=== PATIENT | female | born 1955 | race Caucasian/White ===

== ENCOUNTER 2017-02-25 06:29 | Day surgery (SDC) | payer OTHER ==
[~2017-02-25] VITALS: Ht 155.8 cm; Wt 53.4 kg
[2017-02-25] MEDS ORDERED: SODIUM CHLOR 0.9% 1000 ML INJ 1,000 ML IV SCH ×2 (06:45→10:49)
[2017-02-25 06:56] VITALS: BP 162/87; PULSE 49; RESP 18; TEMP 97.9; O2SAT 100
[2017-02-25] MEDS ORDERED: ASPI1TAB69 PO (06:57)
[2017-02-25] MEDS ORDERED: PLAV75TA29 PO (06:57)
[2017-02-25] MEDS ORDERED: METO25TA3 PO (06:57)
[2017-02-25] MEDS ORDERED: ACET500T3 PO (06:57)
[2017-02-25] MEDS ORDERED: CALCTAB19 PO (06:57)
[2017-02-25] MEDS ORDERED: VITA100018 PO (06:57)
[2017-02-25] MEDS ORDERED: PRAV20TA2 PO (06:57)
[2017-02-25] MEDS ORDERED: HEPARIN-NS/PF INJ 500 ML ONE ×3 (08:29→10:26)
[2017-02-25] MEDS ORDERED: MIDAZOLAM HCL 5 MG/5 ML VIAL ONE (08:30)
[2017-02-25] MEDS ORDERED: HEPARIN SODIUM - IV 10,000 UNITS/10 ML VIAL ONE (09:35)
[2017-02-25] MEDS ORDERED: SODIUM CHLOR 0.9% 250 ML INJ 250 ML IV PRN (11:00)
[2017-02-25] MEDS ORDERED: oxyCODONE/ACETAMINOPHEN 5 MG/325 MG TAB PO PRN (11:00)
[2017-02-25] MEDS ORDERED: oxyCODONE/ACETAMINOPHEN 10 MG/325 MG TAB PO PRN (11:00)
[2017-02-25] MEDS ORDERED: MORPHINE SULFATE 4 MG/ML INJ IV PUSH PRN (11:00)
[2017-02-25] MEDS ORDERED: METOCLOPRAMIDE HCL 10 MG/2 ML VIAL IV PRN (11:00)
[2017-02-25] MEDS ORDERED: ONDANSETRON HCL 4 MG/2 ML VIAL IV PRN (11:00)
[2017-02-25] MEDS ORDERED: LIDOCAINE HCL 1% 50 ML VIAL INFIL PRN (11:00)
[2017-02-25] MEDS ORDERED: TEMAZEPAM 15 MG CAP PO PRN (11:00)
[2017-02-25] MEDS ORDERED: ACETAMINOPHEN 325 MG TAB PO PRN (11:00)
[2017-02-25] MEDS ORDERED: ATROPINE SULFATE 1 MG/ML VIAL IV PRN (11:00)
[2017-02-25] MEDS ORDERED: LIDOCAINE 2% JELLY 30 ML TUBE TOP PRN (11:00)
[2017-02-25] MEDS ORDERED: LORazepam 2 MG/ML VIAL IV PRN (11:00)
[2017-02-25] MEDS ORDERED: MISC INFORMATION XX ONE (11:30)
--- NOTE | 2017-02-25 11:36 | MA ---
cc: AJAY GONSALEZ DATE 02/25/2017 PROCEDURE PERFORMED 1. Fluoroscopy with interpretation 2. Descending aortography 3. Bilateral lower extremity peripheral angiography first, second, third order visualization interpretation 4. Percutaneous transluminal angioplasty of the left superficial femoral artery. 5. Percutaneous transluminal angioplasty of the right peroneal and anterior tibial arteries. METHOD The risks, benefits and alternatives discussed with the patient. The patient understood and consented to the procedure. PROCEDURE The patient brought into the catheterization lab, placed on the catheterization table. The right groin and right wrist were prepped and draped in a sterile fashion. The right wrist was anesthetized with 2% lidocaine. The right radial artery was cannulated. A 6-Maltese 11 cm sheath was placed without difficulty. DESCENDING AORTOGRAPHY Descending aortography was performed anterior-posterior view using 24 cc contrast injection with good opacification. Descending aortography revealed mild infrarenal descending aortic atherosclerosis, bilateral renal arteries are patent. Bilateral common iliac arteries are occluded. There is an aortobifemoral bypass which is widely patent. PERIPHERAL ANGIOGRAPHY 1. Right lower extremity, the right common internal and external iliac arteries appear to be occluded. Right common femoral is patent. Right profunda is patent. 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 The right superficial femoral artery and popliteal arteries are occluded. There is a right femoral distal popliteal graft which is patent. The distal graft anastomosis has 75% stenosis and then at the level of the bifurcation of the peroneal and tibial artery, there is a 90% discrete stenosis. The posterior tibial appears to be occluded and not well visualized. 2. Left internal and external common iliac arteries are occluded. The left common femoral artery is patent. The profunda artery is patent. The superficial femoral artery proximal has an 80% stenosis. The common femoral, maybe slightly aneurysmal, but I also think that this may be the mendez of the aortobifemoral bypass graft. Left superficial femoral artery otherwise has minor luminal irregularities, smaller caliber size. The popliteal has minor luminal irregularities. There is three-vessel runoff posterior tibial, peroneal and anterior tibial vessels are patent with minor luminal irregularities. PERCUTANEOUS INTERVENTION A 4-Maltese multipurpose catheter was advanced down to the left common femoral artery through the radial approach over a J-wire. A 0.[address] inches [address] wire was then navigated carefully down through the superficial coronary stenosis. A 5.0 x 40 mm Medtronic balloon was then deployed in the proximal segment of the superficial femoral artery. We did try to exchange for an 0.035 x 260 cm stiff angle Glidewire and then passed a drug coated balloon, but we were unable to navigate through the aortofemoral bypass graft due to tortuosity. The wire was pulled. Repeat angiography showed no significant residual stenosis, JANNETH-III flow. Attention was then directed towards the right lower extremity. The right common femoral artery was accessed with a micropuncture sheath under fluoroscopic guidance in an antegrade direction. A 5-Maltese 55 cm sheath was then advanced into the proximal segment of the femoral-popliteal graft. A 300 cm Roberts-ST wire was then navigated down the distal anterior tibial vessel. A second 300 cm 0.014 Roberts-ST wire was then navigated down the peroneal vessel. The 4.0 x 40 mm Medtronic balloon was then deployed in the proximal anterior tibial vessel extending into the graft anastomosis at the level of the distal popliteal artery. The balloon was then removed, passed down into the proximal peroneal artery and deployed. Repeat angiography showed only minor luminal irregularities. Peroneal wire was pulled. A 4.0 x 40 mm drug coated balloon was then passed down to the proximal anterior tibial vessel extending into the distal popliteal artery graft anastomosis and deployed. Repeat angiography showed no residual stenosis, JANNETH-III flow. The catheter was then removed exchanged for short 5-Maltese sheath. Heparin was administered throughout the entire procedure to maintain appropriate anticoagulation. CONCLUSIONS 1. Mild infrarenal descending aortic atherosclerosis. 2. Occluded bilateral common external iliac arteries. 3. Occluded right superficial femoral artery. 4. Patent aortobifemoral bypass graft. 5. Patent right femoral popliteal bypass graft. 6. Severe distal graft anastomosis stenosis of the femoral popliteal graft. 7. Severe right proximal anterior tibial and peroneal artery stenosis. 8. Severe left proximal superficial femoral restenosis. 9. Successful percutaneous transluminal angioplasty of the distal right femoral popliteal graft anastomosis and proximal anterior tibial and peroneal arteries. 10. Successful percutaneous transluminal angioplasty of the left proximal superficial femoral artery. PLAN Hopefully this will translate well to symptomatic improvement. We were able to successfully revascularize both extremities as well as can be expected. Continue aspirin and Plavix. I discussed the case also with Dr. 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 MD ADILENE Trejo/AYANNA /10:57 AM /11:19 AM ARNOL
[2017-02-25] MEDS ORDERED: BACITRACIN OINT 0.9 GM PKT TOP ONE (12:00)
== END 2017-02-25 19:01 | disposition home or self-care (01) ==
LOC: HDOC 06:29 → HDIC 06:30 → HDOC 19:01
PROVIDERS: ATTEND Internal Medicine
DX: I70.213 Atherosclerosis of native arteries of extremities with intermittent claudication, bilateral legs (principal); I70.0 Atherosclerosis of aorta; I77.1 Stricture of artery; T82.858A Stenosis of other vascular prosthetic devices, implants and grafts, initial encounter; I25.10 Atherosclerotic heart disease of native coronary artery without angina pectoris; I10 Essential (primary) hypertension; Z79.01 Long term (current) use of anticoagulants; Z79.82 Long term (current) use of aspirin
CPT/HCPCS: 37224; 37228; 75625; 75716; 85002; 85347; 86850; 86900; 86901; C1725; C1751; C1769; C1893; C2623; J1644; J2250; J3010; J7030

== ENCOUNTER → 2017-05-23 | Outpatient (CLI) | payer OTHER ==
[~2017-05-23] MED LIST: ACET500T3 PO; ASPI1TAB69 PO; CALCTAB19 PO; METO25TA3 PO; PLAV75TA29 PO; PRAV20TA2 PO; VITA100018 PO
== END ==
LOC: CLAB 13:27
PROVIDERS: ATTEND Specialist
DX: B18.2 Chronic viral hepatitis C (principal); I10 Essential (primary) hypertension; I70.219 Atherosclerosis of native arteries of extremities with intermittent claudication, unspecified extremity; I25.10 Atherosclerotic heart disease of native coronary artery without angina pectoris; F17.200 Nicotine dependence, unspecified, uncomplicated
CPT/HCPCS: 36415; 82140

== ENCOUNTER → 2017-10-21 | Outpatient (CLI) | payer OTHER | LOC: CLAB 10:28 | PROVIDERS: ATTEND Specialist | DX: B18.2 Chronic viral hepatitis C (principal) | CPT/HCPCS: 36415; 82140 ==

== ENCOUNTER → 2018-02-03 | Outpatient (CLI) | payer OTHER | LOC: CLAB 09:42 | PROVIDERS: ATTEND Specialist | DX: B18.2 Chronic viral hepatitis C (principal) | CPT/HCPCS: 36415; 82140 ==

== ENCOUNTER → 2018-03-27 | Outpatient (CLI) | payer OTHER | LOC: CLAB 09:44 | PROVIDERS: ATTEND Specialist | DX: B18.2 Chronic viral hepatitis C (principal); E78.2 Mixed hyperlipidemia; E55.9 Vitamin D deficiency, unspecified; R79.89 Other specified abnormal findings of blood chemistry; Z79.899 Other long term (current) drug therapy | CPT/HCPCS: 36415; 82140 ==

== ENCOUNTER 2018-10-05 09:48 | Inpatient (IN) ==
[2018-10-05] MEDS ORDERED: Heparin Drip 25,000 UNIT/250 ML BAG IV.CONT PRN (13:49)
[2018-10-05] MEDS ORDERED: Heparin 10,000 UNITS/10 ML Vial (for IV use) IV.PUSH STA (13:49)
[2018-10-05 14:28] LABS: Baso # (Auto) 0.1 th/mm3 (0.0-0.2); Baso % (Auto) 0.8 % (0.0-2.0); Eos # (Auto) 0.1 th/mm3 (0.0-0.4); Eos % (Auto) 1.2 % (0.0-4.0); Hematocrit 32.7 % (35.0-46.0); Lymph # (Auto) 1.9 th/mm3 (1.0-4.8); Lymph % (Auto) 28.9 % (9.0-44.0); Mean Corpuscular HGB Conc 33.7 % (32.0-36.0); Mean Corpuscular Hemoglobin 31.5 pg (27.0-34.0); Mean Corpuscular Volume 93.4 fL (80.0-100.0); Mean Platelet Volume 8.5 fL (7.0-11.0); Mono # (Auto) 0.7 th/mm3 (0.0-0.9); Neut # (Auto) 3.9 th/mm3 (1.8-7.7); Neut % (Auto) 59.1 % (16.0-70.0); Platelet Count 158 th/mm3 (150-450); Red Cell Distribution Width 13.6 % (11.6-17.2); White Blood Count 6.7 th/mm3 (4.0-11.0)
[2018-10-05 14:37] LABS: Activated Partial Thrombo Time 25.9 sec (23.4-31.7); Prothrombin Time 10.5 sec (9.8-11.6)
--- NOTE | 2018-10-05 14:45 | ED ---
HPI General Chief complaint: Extremity Problem,Nontraumatic Stated complaint: Right Leg Complaint Time Seen by Provider: 10/05/18 13:18 Source: patient Mode of arrival: ambulatory Limitations: no limitations History of Present Illness HPI Narrative: 63-year-old female complains of numbness in the right leg from the knee through the toes. She has had a history of paresthesias on the right side in the past however over the past 3 days it is become totally numb. She underwent coronary catheterization with stent placement by Dr. Santos on Friday. She reports Friday morning she experienced a numbness. She has a history of peripheral vascular disease. She takes Plavix every day and took it today. She denies pain in the right leg. She has a history of vascular surgery bypass on the right lower extremity. Timing constant. No modifying factor. Related Data Home Medications Medication Instructions Recorded Confirmed aspirin 81 mg PO DAILY 10/02/18 10/05/18 calcium carbonate [Calcium 600] 600 mg PO BID 10/02/18 10/05/18 calcium polycarbophil [Fiber-Tabs] See Label Instructions .ROUTE 10/02/18 .COMPLEX cilostazol 100 mg PO BID 10/02/18 10/05/18 ergocalciferol (vitamin D2) 50,000 unit PO QWEEK 10/02/18 10/05/18 icosapent ethyl [Vascepa] 1 g PO BID 10/02/18 10/05/18 mirtazapine 7.5 mg PO DAILY 10/02/18 10/05/18 nitroglycerin 0.3 mg SUBLINGUAL Q5-15M PRN 10/02/18 10/05/18 rosuvastatin 10 mg PO 3XW 10/02/18 10/05/18 Previous Rx's Medication Instructions Recorded clopidogrel 75 mg PO DAILY #30 tab 10/03/18 isosorbide mononitrate 60 mg PO DAILY #30 tab 10/03/18 Allergies Allergy/AdvReac Type Severity Reaction Status Date / Time No Known Allergies Allergy Verified 10/05/18 13:18 Review of Systems ROS: all other systems reviewed are negative [facility] Medical History Medical History Cardiomegaly (Acute) Chronic back pain (Acute) Coronary artery disease (Acute) Neuropathy (Acute) Osteoporosis (Acute) HLD (hyperlipidemia) (Acute) PAD (peripheral artery disease) (Acute) Surgical History Surgical History H/O peripheral artery bypass (Acute) S/P CABG x 4 (Acute) Social History Social History Substance History: No History of Abuse Second Hand Smoke Exposure: Yes Smoking Status: Never smoker How Often Do You Have a Drink Containing Alcohol: 2 to 4 times a month Recent Travel in [facility] within the Last 8 Weeks: No Recent Out of Country Travel within the Last 8 Weeks: No Exam Narrative Exam Narrative: GENERAL: 63-year-old female pleasant well-nourished well- developed SKIN: Focused skin assessment warm/dry. HEAD: Atraumatic. Normocephalic. EYES: Pupils equal and round. No scleral icterus. No injection or drainage. ENT: No nasal bleeding or discharge. Mucous membranes pink and moist. NECK: Trachea midline. No JVD. CARDIOVASCULAR: Regular rate and rhythm. No murmur appreciated. RESPIRATORY: No accessory muscle use. Clear to auscultation. Breath sounds equal bilaterally. GASTROINTESTINAL: Abdomen soft, non-tender, nondistended. Hepatic and splenic margins not palpable. MUSCULOSKELETAL: No dorsalis pedis posterior tibialis or femoral artery pulse appreciable on the right side on my exam. There is a present left dorsalis pedis, 2+. Right lower extremity pallor is present from the ankles to the toes. In the left side there is normal perfusion. Minimal ecchymosis in the region of the right inguinal crease. NEUROLOGICAL: Awake and alert. No obvious cranial nerve deficits. Motor grossly within normal limits. Normal speech. PSYCHIATRIC: Appropriate mood and affect; insight and judgment normal. Course Initial Documented Vital Signs Temperature 97.2 F L 10/05/18 10:03 Pulse Rate 110 H 10/05/18 10:03 Respiratory Rate 20 10/05/18 10:03 Blood Pressure 110/65 10/05/18 10:03 Pulse Oximetry 99 10/05/18 10:03 Last Documented Vital Signs Temperature 99.1 F 10/07/18 11:00 Pulse Rate 90 10/07/18 12:00 Respiratory Rate 16 10/07/18 11:00 Blood Pressure 97/57 L 10/07/18 11:00 Pulse Oximetry 98 10/07/18 11:00 Sign Out Sign Out Data: Patient Sign Out occurred on 10/05/18 at 15:15. Patient's care was discussed, and care was transferred from Ahmet Neely MD to Tanisha Brenner MD. Sign Out Comment: CTA runoff ordered. There is concern for right lower extremity arterial acute occlusion. Discussed with Dr. Santos already. Heparin started. Please call Dr. Santos with results and discussion for next step likely vascular surgery involvement. Last updated by Ahmet Neely MD at 10/05/18 14:52 Post-Handoff Eval: CTA shows vascular occlusion of the right side, and the case has been discussed with Dr. Santos who had already discussed the case with Dr. Bañuelos and Dr. Phillip Waters for admission and for further treatment. Patient is currently on heparin. Medical Decision Making MDM Narrative Medical decision making narrative: Case discussed with oncoming provider at 3 PM. Follow-up CTA runoff with plan to call back Dr. Santos ([phone]) with the results and a plan for vascular assessment thereafter, pending Dr. Santos's request. Heparin started here. There is concern for acute or subacute RLE arterial occlusion. Medical Screen Exam Complete: Yes Emergency Medical Condition: Yes Differential Diagnosis Differential Diagnosis: Peripheral artery disease, acute arterial occlusion, claudication Lab Data Result diagrams: 10/07/18 03:27 10/07/18 03:27 Lab Results 10/05/18 10/05/18 10/05/18 Range/Units 14:10 14:10 14:10 WBC 6.7 (4.0-11.0) th/mm3 RBC 3.50 L (4.00-5.30) mil/mm3 Hgb 11.0 L (11.6-15.3) gm/dL Hct 32.7 L (35.0-46.0) % MCV 93.4 (80.0-100.0) fL MCH 31.5 (27.0-34.0) pg MCHC 33.7 (32.0-36.0) % RDW 13.6 (11.6-17.2) % Plt Count 158 (150-450) th/mm3 MPV 8.5 (7.0-11.0) fL Neut % (Auto) 59.1 (16.0-70.0) % Lymph % (Auto) 28.9 (9.0-44.0) % [place] % (Auto) 10.0 H (0.0-8.0) % Eos % (Auto) 1.2 (0.0-4.0) % Baso % (Auto) 0.8 (0.0-2.0) % Neut # (Auto) 3.9 (1.8-7.7) th/mm3 Lymph # (Auto) 1.9 (1.0-4.8) th/mm3 [place] # (Auto) 0.7 (0.0-0.9) th/mm3 Eos # (Auto) 0.1 (0.0-0.4) th/mm3 Baso # (Auto) 0.1 (0.0-0.2) th/mm3 WBC Differential . Differential Comment Auto diff final PT 10.5 (9.8-11.6) sec INR 1.0 Ratio APTT 25.9 (23.4-31.7) sec Sodium 141 (136-145) meq/L Potassium 4.6 (3.5-5.1) meq/L Chloride 108 H (98-107) meq/L Carbon Dioxide 24.5 (21.0-32.0) meq/L Anion Gap 9 (5-15) meq/L BUN 11 (7-18) mg/dL Creatinine 0.57 (0.50-1.00) mg/dL Estimated GFR Greater than 89 (>89) mL/min Random Glucose 85 (74-106) mg/dL Calcium 8.8 (8.5-10.1) mg/dL Total Bilirubin 0.4 (0.2-1.0) mg/dL AST 62 H (15-37) U/L ALT 31 (10-53) U/L Alkaline Phosphatase 52 (45-117) U/L Total Protein 8.2 (6.4-8.2) g/dL Albumin 4.1 (3.4-5.0) g/dL Blood Type Antibody Screen MTS Gel Crossmatch 10/05/18 10/05/18 10/06/18 Range/Units 21:34 21:34 02:45 WBC 7.2 (4.0-11.0) th/mm3 RBC 3.55 L (4.00-5.30) mil/mm3 Hgb 11.2 L (11.6-15.3) gm/dL Hct 32.3 L (35.0-46.0) % MCV 91.0 (80.0-100.0) fL MCH 31.5 (27.0-34.0) pg MCHC 34.7 (32.0-36.0) % RDW 13.3 (11.6-17.2) % Plt Count 155 (150-450) th/mm3 MPV 8.7 (7.0-11.0) fL Neut % (Auto) 59.6 (16.0-70.0) % Lymph % (Auto) 28.8 (9.0-44.0) % [place] % (Auto) 9.1 H (0.0-8.0) % Eos % (Auto) 1.7 (0.0-4.0) % Baso % (Auto) 0.8 (0.0-2.0) % Neut # (Auto) 4.3 (1.8-7.7) th/mm3 Lymph # (Auto) 2.1 (1.0-4.8) th/mm3 [place] # (Auto) 0.7 (0.0-0.9) th/mm3 Eos # (Auto) 0.1 (0.0-0.4) th/mm3 Baso # (Auto) 0.1 (0.0-0.2) th/mm3 WBC Differential . Differential Comment Auto diff final PT (9.8-11.6) sec INR Ratio APTT 53.5 H D (23.4-31.7) sec Sodium (136-145) meq/L Potassium (3.5-5.1) meq/L Chloride (98-107) meq/L Carbon Dioxide (21.0-32.0) meq/L Anion Gap (5-15) meq/L BUN (7-18) mg/dL Creatinine (0.50-1.00) mg/dL Estimated GFR (>89) mL/min Random Glucose (74-106) mg/dL Calcium (8.5-10.1) mg/dL Total Bilirubin (0.2-1.0) mg/dL AST (15-37) U/L ALT (10-53) U/L Alkaline Phosphatase (45-117) U/L Total Protein (6.4-8.2) g/dL Albumin (3.4-5.0) g/dL Blood Type O Positive Antibody Screen Negative MTS Gel Crossmatch 10/06/18 10/06/18 10/07/18 Range/Units 02:45 02:45 00:52 WBC (4.0-11.0) th/mm3 RBC (4.00-5.30) mil/mm3 Hgb (11.6-15.3) gm/dL Hct (35.0-46.0) % MCV (80.0-100.0) fL MCH (27.0-34.0) pg MCHC (32.0-36.0) % RDW (11.6-17.2) % Plt Count (150-450) th/mm3 MPV (7.0-11.0) fL Neut % (Auto) (16.0-70.0) % Lymph % (Auto) (9.0-44.0) % [place] % (Auto) (0.0-8.0) % Eos % (Auto) (0.0-4.0) % Baso % (Auto) (0.0-2.0) % Neut # (Auto) (1.8-7.7) th/mm3 Lymph # (Auto) (1.0-4.8) th/mm3 [place] # (Auto) (0.0-0.9) th/mm3 Eos # (Auto) (0.0-0.4) th/mm3 Baso # (Auto) (0.0-0.2) th/mm3 WBC Differential Differential Comment PT 10.3 (9.8-11.6) sec INR 1.0 Ratio APTT 46.7 H 45.2 H (23.4-31.7) sec Sodium 140 (136-145) meq/L Potassium 4.0 (3.5-5.1) meq/L Chloride 104 (98-107) meq/L Carbon Dioxide 27.8 (21.0-32.0) meq/L Anion Gap 8 (5-15) meq/L BUN 11 (7-18) mg/dL Creatinine 0.60 (0.50-1.00) mg/dL Estimated GFR Greater than 89 (>89) mL/min Random Glucose 103 (74-106) mg/dL Calcium 9.2 (8.5-10.1) mg/dL Total Bilirubin (0.2-1.0) mg/dL AST (15-37) U/L ALT (10-53) U/L Alkaline Phosphatase (45-117) U/L Total Protein (6.4-8.2) g/dL Albumin (3.4-5.0) g/dL Blood Type Antibody Screen MTS Gel Crossmatch 10/07/18 10/07/18 10/07/18 Range/Units 03:27 03:27 04:44 WBC 5.5 (4.0-11.0) th/mm3 RBC 2.40 L (4.00-5.30) mil/mm3 Hgb 7.6 L D (11.6-15.3) gm/dL Hct 22.0 L (35.0-46.0) % MCV 91.8 (80.0-100.0) fL MCH 31.6 (27.0-34.0) pg MCHC 34.4 (32.0-36.0) % RDW 13.2 (11.6-17.2) % Plt Count 119 L (150-450) th/mm3 MPV 8.7 (7.0-11.0) fL Neut % (Auto) (16.0-70.0) % Lymph % (Auto) (9.0-44.0) % [place] % (Auto) (0.0-8.0) % Eos % (Auto) (0.0-4.0) % Baso % (Auto) (0.0-2.0) % Neut # (Auto) (1.8-7.7) th/mm3 Lymph # (Auto) (1.0-4.8) th/mm3 [place] # (Auto) (0.0-0.9) th/mm3 Eos # (Auto) (0.0-0.4) th/mm3 Baso # (Auto) (0.0-0.2) th/mm3 WBC Differential Differential Comment PT (9.8-11.6) sec INR Ratio APTT (23.4-31.7) sec Sodium 142 (136-145) meq/L Potassium 4.2 (3.5-5.1) meq/L Chloride 105 (98-107) meq/L Carbon Dioxide 32.5 H (21.0-32.0) meq/L Anion Gap 5 (5-15) meq/L BUN 9 (7-18) mg/dL Creatinine 0.59 (0.50-1.00) mg/dL Estimated GFR Greater than 89 (>89) mL/min Random Glucose 95 (74-106) mg/dL Calcium 8.1 L D (8.5-10.1) mg/dL Total Bilirubin (0.2-1.0) mg/dL AST (15-37) U/L ALT (10-53) U/L Alkaline Phosphatase (45-117) U/L Total Protein (6.4-8.2) g/dL Albumin (3.4-5.0) g/dL Blood Type Antibody Screen MTS Gel Crossmatch See Detail 10/07/18 Range/Units 08:45 WBC (4.0-11.0) th/mm3 RBC (4.00-5.30) mil/mm3 Hgb (11.6-15.3) gm/dL Hct (35.0-46.0) % MCV (80.0-100.0) fL MCH (27.0-34.0) pg MCHC (32.0-36.0) % RDW (11.6-17.2) % Plt Count (150-450) th/mm3 MPV (7.0-11.0) fL Neut % (Auto) (16.0-70.0) % Lymph % (Auto) (9.0-44.0) % [place] % (Auto) (0.0-8.0) % Eos % (Auto) (0.0-4.0) % Baso % (Auto) (0.0-2.0) % Neut # (Auto) (1.8-7.7) th/mm3 Lymph # (Auto) (1.0-4.8) th/mm3 [place] # (Auto) (0.0-0.9) th/mm3 Eos # (Auto) (0.0-0.4) th/mm3 Baso # (Auto) (0.0-0.2) th/mm3 WBC Differential Differential Comment PT (9.8-11.6) sec INR Ratio APTT 41.3 H (23.4-31.7) sec Sodium (136-145) meq/L Potassium (3.5-5.1) meq/L Chloride (98-107) meq/L Carbon Dioxide (21.0-32.0) meq/L Anion Gap (5-15) meq/L BUN (7-18) mg/dL Creatinine (0.50-1.00) mg/dL Estimated GFR (>89) mL/min Random Glucose (74-106) mg/dL Calcium (8.5-10.1) mg/dL Total Bilirubin (0.2-1.0) mg/dL AST (15-37) U/L ALT (10-53) U/L Alkaline Phosphatase (45-117) U/L Total Protein (6.4-8.2) g/dL Albumin (3.4-5.0) g/dL Blood Type Antibody Screen MTS Gel Crossmatch Imaging Data Radiologist's impression: Chest X-Ray 10/05/18 00:00 CONCLUSION: 1. Chronic mild interstitial prominence and minimal bibasilar atelectasis/ scarring. Aorta w/Runoff CTA 10/05/18 13:37 CONCLUSION: 1. Occlusion of the right limb of the aortobifem and femoral TP graft with very poor runoff below the knee. 2. Patent aortobifem on the left with good a runoff into the left lower extremity. 3. Findings were called to emergency room Dr. Kim on today's date Discharge Plan Discharge Disposition Patient Disposition: 30 Still Patient Discharge Condition Condition: Stable Discharge Details Anticipated Discharge Date: 10/05/18 Diagnosis: Vascular occlusion Physicians Team ED Provider: Tanisha Brenner Primary Care Provider: Nila Kemp Attending Provider: Phillip Waters Other Providers: Abdullahi Mendez Status ED Status: Left Department Discharge Information Discharge Date/Time: 10/05/18 18:30
[2018-10-05 14:46] LABS: Alanine Aminotransferase 31 U/L (10-53); Albumin 4.1 g/dL (3.4-5.0); Alkaline Phosphatase 52 U/L (45-117); Anion Gap 9 meq/L (5-15); Aspartate Aminotransferase 62 U/L (15-37); Blood Urea Nitrogen 11 mg/dL (7-18); Calcium 8.8 mg/dL (8.5-10.1); Carbon Dioxide 24.5 meq/L (21.0-32.0); Chloride 108 meq/L (98-107); Glomerular Filtration Rate Greater Than 89 mL/min (>89); Glucose,Random 85 mg/dL (74-106); Potassium 4.6 meq/L (3.5-5.1); Sodium 141 meq/L (136-145); Total Protein 8.2 g/dL (6.4-8.2)
--- NOTE | 2018-10-05 17:19 | P.CONCA ---
History of Present Illness Service: Cardiology Consult date: 10/05/18 Reason for Consult: Right lower extremity numbness Primary Care Provider: Nila Kemp MD History of Present Illness: This is a very nice 63-year-old female she has history of known coronary artery disease and prior four-vessel bypass surgery back in 2016. She has had aortobifemoral bypass and prior bilateral angioplasty back in 2017. She has been complaining of intermittent chest pain with exertion. We titrated medical therapy with addition of long-acting nitrate and beta-jose j. She continued to have recurrent symptoms. We discussed options, we proceeded with the computed tomography cardiac angiogram which revealed severe graft obstruction and she was scheduled for cardiac catheterization. On October 02, 2018 she underwent cardiac catheterization. I attempted to approach from the left radial artery given her known severe peripheral arterial disease. Unfortunately given the origin of the left internal mammary to the left anterior descending coronary bypass graft needing to be visualized, left radial approach would have been the only alternative. Unfortunately, I was unable to cannulate the radial artery well given the small caliber size and the radial approach was aborted. Under fluoroscopic guidance I cannulated the right common femoral artery without difficulty. The procedure was performed and patient underwent percutaneous coronary intervention to the right coronary artery and circumflex coronary arteries. It was a long and difficult intervention particularly in the circumflex, but ultimately the angiographic result was very good. Patient went back to her room and seemed to do well post procedure. When they pulled the right groin sheath after letting the PTT drift down, they did have to do a more prolonged hold given some oozing. A few hours after the procedure she did note that she her foot was cold and the Doppler pulse was monophasic waveform distally. She did have a palpable popliteal pulse by my examination. We decided at that point to put some nitro paste on her foot. She did well overnight by the next morning she stated that actually the foot felt much better she was able to walk on it without much to pain or difficulty. She ambulated well and was discharged. Over the course of the weekend she states that she had some more difficulty with what sounds like claudication symptoms. Today she noticed that her foot and extremity were actually cooler to the touch and numb. CTA with runoff shows that her right limb of the aortobifemoral graft is occluded. There also appears to be a femoropopliteal graft on the right which is occluded. There is minimal distal runoff just via collateralization. The official read is pending Review of Systems All other systems reviewed negative except as stated in HPI PMFSH - History History Provided By: Patient - Medical History Medical History: Medical History (Last Updated 10/05/18 @ 17:14 by Marcos Santos MD) Cardiomegaly Chronic back pain Coronary artery disease Neuropathy Osteoporosis HLD (hyperlipidemia) PAD (peripheral artery disease) - Surgical History Surgical History: Surgical History (Last Updated 10/05/18 @ 17:14 by Marcos Santos MD) H/O peripheral artery bypass S/P CABG x 4 - Tobacco History Second Hand Smoke Exposure: No Smoking Status: Former smoker - Alcohol History How Often Do You Have a Drink Containing Alcohol: Monthly or less - Substance Use History Substance History: No History of Abuse - Travel History Recent Travel in the [place] Within the Last 8 Weeks: No Recent Travel Out of the Country Within the Last 8 Weeks: No - Immunization History Tetanus Immunization: <5 Years Medications and Allergies Active Medications: Active Medications Heparin Sodium/Dextrose (Heparin/D5w 25,000 U/250 Ml) 25,000 unit in 250 mls @ 0 mls/hr IV.CONT TITRATE PRN; Protocol PRN Reason: Per Protocol Last Admin: 10/05/18 15:23 Dose: 800 units/hr, 8 mls/hr Sodium Chloride (Ns Flush) 2 ml IV.FLUSH UNSCH PRN PRN Reason: FLUSH AFTER USING IV ACCESS Allergies Allergy/AdvReac Type Severity Reaction Status Date / Time No Known Allergies Allergy Verified 10/05/18 13:18 Home Medications Medication Instructions Recorded Confirmed Type aspirin 81 mg PO DAILY 10/02/18 10/05/18 History calcium carbonate [Calcium 600] 600 mg PO BID 10/02/18 10/05/18 History calcium polycarbophil [Fiber-Tabs] See Label Instructions .ROUTE 10/02/18 History .COMPLEX cilostazol 100 mg PO BID 10/02/18 10/05/18 History ergocalciferol (vitamin D2) 50,000 unit PO QWEEK 10/02/18 10/05/18 History icosapent ethyl [Vascepa] 1 g PO BID 10/02/18 10/05/18 History mirtazapine 7.5 mg PO DAILY 10/02/18 10/05/18 History nitroglycerin 0.3 mg SUBLINGUAL Q5-15M PRN 10/02/18 10/05/18 History rosuvastatin 10 mg PO 3XW 10/02/18 10/05/18 History Exam Vital signs: Vital Signs 10/05/18 10:03 10/05/18 13:19 10/05/18 14:14 Temperature 97.2 F L Pulse Rate 110 H 84 83 Respiratory Rate 20 24 Blood Pressure 110/65 130/67 Pulse Oximetry 99 100 98 10/05/18 15:30 10/05/18 16:15 Temperature Pulse Rate 80 88 Respiratory Rate 21 19 Blood Pressure 147/70 H 153/75 H Pulse Oximetry 99 98 Intake & Output 10/04/18 10/05/18 10/05/18 18:59 06:59 18:59 Weight 47.174 kg - Constitutional no acute distress - Routine HEENT Exam Head: Present: normocephalic Eye: Present: EOMI, PERRL ENT: Present: mucous membranes moist - Routine Neck Exam Absent: JVD - Routine Respiratory Exam Present: CTA bilaterally - Routine Cardiovascular Exam Present: RRR. Absent: murmur - Routine Abdominal Exam Present: soft, normoactive bowel sounds - Routine Extremities Exam Absent: cyanosis, clubbing, edema Comments: Minor superficial ecchymosis at the access site without hematoma. No palpable common femoral pulse. No palpable popliteal pulse. The extremity is warm to the level of the ankle. Her foot is slightly cool. She does have some numbness of the foot. She is able to move the extremity and the toes without difficulty or pain. Patient seems comfortable. Results 10/05/18 14:10 10/05/18 14:10 Cardiac Enzymes 10/05/18 Range/Units 14:10 AST 62 H (15-37) U/L Coagulation 10/05/18 Range/Units 14:10 PT 10.5 (9.8-11.6) sec APTT 25.9 (23.4-31.7) sec CBC 10/05/18 Range/Units 14:10 WBC 6.7 (4.0-11.0) th/mm3 RBC 3.50 L (4.00-5.30) mil/mm3 Hgb 11.0 L (11.6-15.3) gm/dL Hct 32.7 L (35.0-46.0) % Plt Count 158 (150-450) th/mm3 Neut # (Auto) 3.9 (1.8-7.7) th/mm3 Lymph # (Auto) 1.9 (1.0-4.8) th/mm3 [place] # (Auto) 0.7 (0.0-0.9) th/mm3 Eos # (Auto) 0.1 (0.0-0.4) th/mm3 Baso # (Auto) 0.1 (0.0-0.2) th/mm3 Comprehensive Metabolic Panel 10/05/18 Range/Units 14:10 Sodium 141 (136-145) meq/L Potassium 4.6 (3.5-5.1) meq/L Chloride 108 H (98-107) meq/L Carbon Dioxide 24.5 (21.0-32.0) meq/L BUN 11 (7-18) mg/dL Creatinine 0.57 (0.50-1.00) mg/dL Calcium 8.8 (8.5-10.1) mg/dL AST 62 H (15-37) U/L ALT 31 (10-53) U/L Alkaline Phosphatase 52 (45-117) U/L Total Protein 8.2 (6.4-8.2) g/dL Albumin 4.1 (3.4-5.0) g/dL Intake and Output 10/05/18 10/05/18 10/05/18 06:59 14:59 22:59 Other: Weight 47.174 kg Patient Weight 10/06/18 06:59 Weight 47.174 kg Assessment and Plan - Assessment (1) Peripheral arterial disease Code(s): I73.9 - Peripheral vascular disease, unspecified Status: Acute (2) Vascular occlusion Code(s): I99.8 - Other disorder of circulatory system Status: Acute - Plan I personally reviewed the computed tomographic angiography scan of the abdomen with runoff. The right lower limb portion of the aortobifemoral graft is occluded. I discussed the case in detail with vascular surgery, Dr. Mendez. Patient is currently on a heparin drip. Patient has full mobility of the extremity. Patient's extremity overall is warm just to the level of the ankle, where the foot is slightly cool to touch. It seems that some point after discharge, patient occluded the right limb and will now require revascularization. Given the likely heavy thrombotic burden, a percutaneous approach with thrombolytics would probably be less successful then consideration for a thrombectomy. Will leave that decision up to vascular surgery. This point I see no need for any emergent procedure, but hopefully they will be able to take her to the operating room tomorrow. Unstable angina is resolved. Continue aspirin and Plavix. Patient does have history of cardiomegaly, but no history of cardiomyopathy. We will obtain a 2D echocardiogram just to evaluate ejection fraction and consideration of possible surgical intervention.
--- NOTE | 2018-10-05 17:51 | CT ---
EXAM DATE: 10/05/2018 4:04 PM EST AGE/SEX: 63 years / Female INDICATIONS: Right lower extremity numbness CLINICAL DATA: This is the patient's initial encounter. Patient reports that signs and symptoms have been present for 1 day and indicates a pain score of 5/10. MEDICAL/SURGICAL HISTORY: Cardiovascular disease. Peripheral artery disease. CABG. RADIATION DOSE: 6.10 CTDI (mGy) COMPARISON: No prior exams available for comparison. TECHNIQUE: Volumetric scanning was performed using a multi-row detector CT scanner during bolus infu stephon of 100 ml Omnipaque 350 (iohexol) nonionic water-soluble contrast as a single exam dose. The data was post processed with a variety of visualization algorithms including full volume maximum inte nsity projection, multi-planar sliding thin slab reformation, curved planar reformation, and surface rendering techniques. Using automated exposure control and adjustment of the mA and/or kV according to patient size, radiation dose was kept as low as reasonably achievable to obtain optimal diagnostic quality images. DICOM format image data is available electronically for review and comparison. FINDINGS: ABDOMINAL AORTA: Moderate atherosclerotic disease is present in the abdominal aorta with minimal dila tation. The celiac and superior mesenteric artery are widely patent. Right and left renal arteries ar e widely patent. Aorta bifemoral graft is evident with occlusion of the right limb of the graft. The left limb is widely patent. RIGHT LOWER EXTREMITY: The profunda is reconstituted by gluteal and mesenteric collaterals. Femoral T P graft is occluded with very poor runoff into the right lower extremity below the knee. LEFT LOWER Extremity: the left aortobifem graft is widely patent with a patent superficial femoral ar anastacia with large amount calcification at the adductor hiatus. Three-vessel trifurcation is identified with 2 vessel runoff to the foot. SOURCE DATA: The liver, gallbladder, spleen and pancreas unremarkable There is symmetrical renal function without renal mass. There is no ascites or adenopathy. Large amou nt stool is seen throughout the colon. There is some trace free fluid in the pelvis. Small cystic mas s measuring 3.3 cm is seen in the left adnexa region. CONCLUSION: 1. Occlusion of the right limb of the aortobifem and femoral TP graft with very poor runoff below th e knee. 2. Patent aortobifem on the left with good a runoff into the left lower extremity. 3. Findings were called to emergency room Dr. Kim on today's date Electronically signed by: James Ahmadi MD 10/05/2018 5:49 PM EST
--- NOTE | 2018-10-05 18:19 | P.CONVS ---
History of Present Illness Service: Vascular surgery Consult date: 10/05/18 Primary Care Provider: Nila Kemp MD Chief Complaint: Right lower extremity pain History of Present Illness: 63-year-old female with a past medical history of aortoiliac occlusive disease status post aortobifemoral bypass. She also has a right femoral to popliteal artery bypass. She recently underwent a cardiac catheterization and now she is complaining of right lower extremity pain that started Friday morning. Patient is able to ambulate with no motor deficits. She reports some numbness in the right foot without any sensory deficits. Her pain has subsided since the heparin drip was started in the emergency room. She denies any chest pain or shortness of breath. Review of Systems All other systems reviewed negative except as stated in HPI PMFSH - History History Provided By: Patient - Medical History Medical History: Medical History (Last Updated 10/05/18 @ 17:14 by Marcos Santos MD) Cardiomegaly Chronic back pain Coronary artery disease Neuropathy Osteoporosis HLD (hyperlipidemia) PAD (peripheral artery disease) - Surgical History Surgical History: Surgical History (Last Updated 10/05/18 @ 17:14 by Marcos Santos MD) H/O peripheral artery bypass S/P CABG x 4 - Tobacco History Second Hand Smoke Exposure: No Smoking Status: Former smoker - Alcohol History How Often Do You Have a Drink Containing Alcohol: Monthly or less - Substance Use History Substance History: No History of Abuse - Travel History Recent Travel in the [place] Within the Last 8 Weeks: No Recent Travel Out of the Country Within the Last 8 Weeks: No - Immunization History Tetanus Immunization: <5 Years Medications and Allergies Active Medications: Active Medications Heparin Sodium/Dextrose (Heparin/D5w 25,000 U/250 Ml) 25,000 unit in 250 mls @ 0 mls/hr IV.CONT TITRATE PRN; Protocol PRN Reason: Per Protocol Last Admin: 10/05/18 15:23 Dose: 800 units/hr, 8 mls/hr Sodium Chloride (Ns Flush) 2 ml IV.FLUSH UNSCH PRN PRN Reason: FLUSH AFTER USING IV ACCESS Allergies Allergy/AdvReac Type Severity Reaction Status Date / Time No Known Allergies Allergy Verified 10/05/18 13:18 Home Medications Medication Instructions Recorded Confirmed Type aspirin 81 mg PO DAILY 10/02/18 10/05/18 History calcium carbonate [Calcium 600] 600 mg PO BID 10/02/18 10/05/18 History calcium polycarbophil [Fiber-Tabs] See Label Instructions .ROUTE 10/02/18 History .COMPLEX cilostazol 100 mg PO BID 10/02/18 10/05/18 History ergocalciferol (vitamin D2) 50,000 unit PO QWEEK 10/02/18 10/05/18 History icosapent ethyl [Vascepa] 1 g PO BID 10/02/18 10/05/18 History mirtazapine 7.5 mg PO DAILY 10/02/18 10/05/18 History nitroglycerin 0.3 mg SUBLINGUAL Q5-15M PRN 10/02/18 10/05/18 History rosuvastatin 10 mg PO 3XW 10/02/18 10/05/18 History Physical Exam Vital Signs / I&O: Vital Signs 10/05/18 10:03 10/05/18 13:19 10/05/18 14:14 Temperature 97.2 F L Pulse Rate 110 H 84 83 Respiratory Rate 20 24 Blood Pressure 110/65 130/67 Pulse Oximetry 99 100 98 10/05/18 15:30 10/05/18 16:15 10/05/18 17:20 Temperature Pulse Rate 80 88 82 Respiratory Rate 21 19 21 Blood Pressure 147/70 H 153/75 H 146/77 H Pulse Oximetry 99 98 100 Intake & Output 10/04/18 10/05/18 10/05/18 18:59 06:59 18:59 Weight 47.174 kg Neuro: Alert awake oriented x3 HEENT: Normocephalic atraumatic Neck: Supple Heart: S1-S2 Lungs: Clear to auscultation bilateral Abdomen: Soft nontender nondistended Vascular: Right foot is cool to touch. Absent femoral pulse, dopplerable popliteal signal. Dopplerable posterior tibial venous signal. Motor, sensory is intact bilaterally. Laboratory Results - last 24 hr 10/05/18 10/05/18 10/05/18 14:10 14:10 14:10 WBC 6.7 RBC 3.50 L Hgb 11.0 L Hct 32.7 L MCV 93.4 MCH 31.5 MCHC 33.7 RDW 13.6 Plt Count 158 MPV 8.5 Neut % (Auto) 59.1 Lymph % (Auto) 28.9 [place] % (Auto) 10.0 H Eos % (Auto) 1.2 Baso % (Auto) 0.8 Neut # (Auto) 3.9 Lymph # (Auto) 1.9 [place] # (Auto) 0.7 Eos # (Auto) 0.1 Baso # (Auto) 0.1 WBC Differential . Differential Comment Auto diff final PT 10.5 INR 1.0 APTT 25.9 Sodium 141 Potassium 4.6 Chloride 108 H Carbon Dioxide 24.5 Anion Gap 9 BUN 11 Creatinine 0.57 Estimated GFR Greater than 89 Random Glucose 85 Calcium 8.8 Total Bilirubin 0.4 AST 62 H ALT 31 Alkaline Phosphatase 52 Total Protein 8.2 Albumin 4.1 Impressions Aorta w/Runoff CTA 10/05/18 13:37 CONCLUSION: 1. Occlusion of the right limb of the aortobifem and femoral TP graft with very poor runoff below the knee. 2. Patent aortobifem on the left with good a runoff into the left lower extremity. 3. Findings were called to emergency room Dr. Kim on today's date Assessment and Plan - Plan Right lower extremity acute limb ischemia stage IIa. Currently motor/sensory is intact with mild numbness of the right foot Patient slightly improved since the heparin drip was started in the ED. Plan OR in a.m. for right lower extremity revascularization. Will attempt thrombectomy of the right limb of the aortobifem and possible femoral to femoral bypass. The patient will need common femoral endarterectomy versus a right groin reconstruction. She will also may need a right femoral to distal bypass. Risk benefits and alternatives were explained to the patient she understood and she agrees to the procedure. Thank you for allowing us to participate in this patient care. If you have any questions please do not hesitate to call my cell phone Jesus Chan MD [facility] [phone]
--- NOTE | 2018-10-05 18:21 | P.HPIM ---
History of Present Illness Primary Care Physician: Nila Kemp MD DRAFT Diagnosis (1) Peripheral arterial disease: (2) Vascular occlusion: Inpatient Certification Inpatient Certification: I certify that the inpatient services were ordered in accordance with Medicare regulations governing the order. This includes certification that hospital inpatient services are reasonable and necessary and in the case of services not specified as inpatient-only under 42 CFR 419.22(n), that they are appropriately provided as inpatient services in accordance to with the 2-midnight benchmark under 43 CFR 412.3(e) Medications and Allergies Allergies Allergy/AdvReac Type Severity Reaction Status Date / Time No Known Allergies Allergy Verified 10/05/18 13:18 Home Medications Medication Instructions Recorded Confirmed Type aspirin 81 mg PO DAILY 10/02/18 10/05/18 History calcium carbonate [Calcium 600] 600 mg PO BID 10/02/18 10/05/18 History calcium polycarbophil [Fiber-Tabs] See Label Instructions .ROUTE 10/02/18 History .COMPLEX cilostazol 100 mg PO BID 10/02/18 10/05/18 History ergocalciferol (vitamin D2) 50,000 unit PO QWEEK 10/02/18 10/05/18 History icosapent ethyl [Vascepa] 1 g PO BID 10/02/18 10/05/18 History mirtazapine 7.5 mg PO DAILY 10/02/18 10/05/18 History nitroglycerin 0.3 mg SUBLINGUAL Q5-15M PRN 10/02/18 10/05/18 History rosuvastatin 10 mg PO 3XW 10/02/18 10/05/18 History Active Medications: Active Medications Heparin Sodium/Dextrose (Heparin/D5w 25,000 U/250 Ml) 25,000 unit in 250 mls @ 0 mls/hr IV.CONT TITRATE PRN; Protocol PRN Reason: Per Protocol Last Admin: 10/05/18 15:23 Dose: 800 units/hr, 8 mls/hr Sodium Chloride (Ns Flush) 2 ml IV.FLUSH UNSCH PRN PRN Reason: FLUSH AFTER USING IV ACCESS Physical Exam Vital signs: Last Vital Signs Temp 97.2 F L 10/05/18 10:03 Pulse 82 10/05/18 17:20 Resp 21 10/05/18 17:20 BP 146/77 H 10/05/18 17:20 Pulse Ox 100 10/05/18 17:20 Results Labs CBC & Chem 7: 10/05/18 14:10 10/05/18 14:10 Caprini VTE Risk Assessment Caprini Risk Assessment Model: Point Value = 1 Point Value = 2 Point Value = 3 Point Value = 5 Age 41-60 Minor surgery BMI > 25 kg/m2 Swollen legs Varicose veins or History of unexplained or recurrent spontaneous Oral contraceptives or hormone replacement Sepsis (< 1 month) Serious lung disease, including pneumonia (< 1 month) Abnormal pulmonary function Acute myocardial infarction Congestive heart failure (< 1 month) History of inflammatory bowel disease Medical patient at bed rest Age 61-74 Arthroscopic surgery Major open surgery (> 45 min) Laparoscopic surgery (> 45 min) Malignancy Confined to bed (> 72 hours) Immobilizing plaster cast Central venous access Age >= 75 History of VTE Family history of VTE Factor V Leiden Prothrombin [id number] Lupus anticoagulant Anticardiolipin antibodies Elevated serum homocysteine Heparin-induced thrombocytopenia Other congenital or acquired thrombophilia Stroke (< 1 month) Elective arthroplasty Hip, pelvis, or leg fracture Acute spinal cord injury (< 1 month) Prophylaxis Regimen: Total Risk Factor Score Risk Level Prophylaxis Regimen 0-1 Low Early ambulation 2 Moderate Order ONE of the following: *Sequential Compression Device (SCD) *Heparin 5000 units SQ BID 3-4 Higher Order ONE of the following medications: *Heparin 5000 units SQ TID *Enoxaparin/Lovenox 40 mg SQ daily (WT < 150 kg, CrCl > 30 mL/min) *Enoxaparin/Lovenox 30 mg SQ daily (WT < 150 kg, CrCl > 10-29 mL/min) *Enoxaparin/Lovenox 30 mg SQ BID (WT < 150 kg, CrCl > 30 mL/min) AND/OR *Sequential Compression Device (SCD) 5 or more Highest Order ONE of the following medications: *Heparin 5000 units SQ TID (Preferred with Epidurals) *Enoxaparin/Lovenox 40 mg SQ daily (WT < 150 kg, CrCl > 30 mL/min) *Enoxaparin/Lovenox 30 mg SQ daily (WT < 150 kg, CrCl > 10-29 mL/min) *Enoxaparin/Lovenox 30 mg SQ BID (WT < 150 kg, CrCl > 30 mL/min) AND *Sequential Compression Device (SCD) Assessment and Plan Assessment (1) Peripheral arterial disease: Code(s): I73.9 - Peripheral vascular disease, unspecified Status: Acute (2) Vascular occlusion: Code(s): I99.8 - Other disorder of circulatory system Status: Acute
[2018-10-05] MEDS ORDERED: Acetaminophen 325 MG Tablet PO PRN (18:51)
[2018-10-05] MEDS ORDERED: HYDROmorphone PF Inj 2 MG/ML Vial IV.PUSH PRN (19:02)
--- NOTE | 2018-10-05 19:47 | XR ---
EXAM DATE: 10/05/2018 7:34 PM EST AGE/SEX: 63 years / Female INDICATIONS: Cough. CLINICAL DATA: This is the patient's initial encounter. Patient reports that signs and symptoms have been present for 2 days and indicates a pain score of 0/10. MEDICAL/SURGICAL HISTORY: Cardiovascular disease. CABG. Coronary artery stent. COMPARISON: [facility], CT CHEST W/ CONTRAST, 05/01/2018. . FINDINGS: Mild diffuse interstitial prominence with minimal linear parenchymal opacities at the lung bases. No new focal pleural or parenchymal opacities. Median sternotomy wires in place. The cardiomediastinal c ontours are unremarkable. Osseous structures are intact. CONCLUSION: 1. Chronic mild interstitial prominence and minimal bibasilar atelectasis/scarring. Electronically signed by: David Villalpando MD 10/05/2018 7:46 PM EST
[2018-10-05] MEDS ORDERED: [UNRECOGNIZED DRUG - OTHER] PO SCH (21:00)
[2018-10-05] MEDS: HYDROmorphone PF Inj 1 MG/ML Ampul IV.PUSH PRN (21:05)
[2018-10-05] MEDS: Senna/Docusate Sodium 8.6/50 MG Tablet PO SCH (21:06)
[2018-10-05] MEDS: Calcium Carbonate 500 MG Tablet PO SCH (21:06)
[2018-10-05] MEDS ORDERED: Chlorhexidine Gluconate 2% 1 Pack (2 Cloths) TOPICAL ONE (23:43)
[2018-10-05] MEDS ORDERED: Metoprolol Tartrate 25 MG Tablet PO ONE (23:43)
[2018-10-06] MEDS: HYDROmorphone PF Inj 1 MG/ML Ampul IV.PUSH PRN ×2 (01:12→05:06)
[2018-10-06 03:34] LABS: Baso # (Auto) 0.1 th/mm3 (0.0-0.2); Baso % (Auto) 0.8 % (0.0-2.0); Eos # (Auto) 0.1 th/mm3 (0.0-0.4); Eos % (Auto) 1.7 % (0.0-4.0); Hematocrit 32.3 % (35.0-46.0); Hemoglobin 11.2 gm/dL (11.6-15.3); Lymph # (Auto) 2.1 th/mm3 (1.0-4.8); Lymph % (Auto) 28.8 % (9.0-44.0); Mean Corpuscular HGB Conc 34.7 % (32.0-36.0); Mean Corpuscular Hemoglobin 31.5 pg (27.0-34.0); Mean Platelet Volume 8.7 fL (7.0-11.0); Mono # (Auto) 0.7 th/mm3 (0.0-0.9); Mono % (Auto) 9.1 % (0.0-8.0); Neut # (Auto) 4.3 th/mm3 (1.8-7.7); Neut % (Auto) 59.6 % (16.0-70.0); Platelet Count 155 th/mm3 (150-450); Red Blood Count 3.55 mil/mm3 (4.00-5.30); Red Cell Distribution Width 13.3 % (11.6-17.2); White Blood Count 7.2 th/mm3 (4.0-11.0)
[2018-10-06 03:48] LABS: Anion Gap 8 meq/L (5-15); Blood Urea Nitrogen 11 mg/dL (7-18); Calcium 9.2 mg/dL (8.5-10.1); Carbon Dioxide 27.8 meq/L (21.0-32.0); Chloride 104 meq/L (98-107); Glomerular Filtration Rate Greater Than 89 mL/min (>89); Glucose,Random 103 mg/dL (74-106); Sodium 140 meq/L (136-145)
[2018-10-06 03:59] LABS: Activated Partial Thrombo Time 46.7 sec (23.4-31.7); Prothrombin Time 10.3 sec (9.8-11.6)
[2018-10-06] MEDS ORDERED: Heparin 10,000 UNITS/10 ML Vial (for IV use) ONE (06:41)
[2018-10-06] MEDS ORDERED: Heparin/NS PF Inj 500 ML ONE (06:41)
[2018-10-06] MEDS ORDERED: ceFAZolin 2 GM Premix Inj 2 GM/50 ML PIGGYBACK IV.SIG ONE (06:42)
[2018-10-06] MEDS: Protamine Sulfate Inj 50 MG/5 ML Vial ONE ×2 (09:14→12:45)
[2018-10-06] MEDS ORDERED: ceFAZolin 1 GM Premix Inj 1 GM/50 ML FROZ.PIGGY IV.SIG ONE (11:51)
--- NOTE | 2018-10-06 12:46 | P.OP ---
Preoperative Diagnosis: Right lower extremity acute limb ischemia stage II a Postoperative Diagnosis: Right lower extremity acute limb ischemia stage II a Date of procedure: 10/06/18 Procedure: #1 thrombectomy of the right limb of aortobifem bypass graft #2 thrombectomy of the right femoral to popliteal artery bypass graft #3 right tibial thrombectomy #4 right common femoral artery patch angioplasty #5 right popliteal artery patch angioplasty Surgeon: Jesus Chan MD [employer] Sales Representative: Dr. Abdullahi Mendez Estimated blood loss (mL): 150 Operation and Findings: Findings: 1-Successful thrombectomy of the right limb of ABFBG. Able to establish great inflow. The artery was repaired using a pericardial patch. 2-RLE ischemia persists after establishing inflow. Noted resistance passing the Franko catheter in the distal aspect of the Femoral-pop bypass graft (around the distal anastomosis) which indicated recurrent disease. 3-Neointimal hyperplasia was noted at the distal anastomosis of the right fem- pop bypass. This was repaid using patch angioplasty. Pulses remained absent in the RLE. A tibial thoracectomy was performed and we were able to obtain a multiphasic right DP signal and a monophasic right PT signal. 4-The patient has mild pain with active motion but her numbness has resolved. She had some tenderness over the anterior compartment on PE.Her RLE 4 compartments were soft. I explained to her that she at risk of developing compartment syndrome and she may need a fasciotomy. Will continue with observation and serial neuro-vascular checks Operation details The patient was taken to the operating room laid supine in the OR table. After adequate sedation the patient was prepped and draped in the standard sterile fashion. Timeout was called with all members and you are in agreement. A limited incision was made in the right groin. Dissection was taken down through the subcutaneous tissues electrocautery. The aortobifemoral bypass graft was dissected. The [place] iliac, common femoral artery, profunda were also dissected and encircled with Silastic loop. The femoral to popliteal artery bypass graft was also dissected and encircled Silastic loop. The patient was heparinized. A limited incision was made into the right femoral to popliteal bypass graft and extended into the right lobe of the aortobifem bypass graft. A thrombectomy of the aortobifem bypass graft and the femoral to popliteal bypass graft was performed using Franko catheter. We were able to obtain antegrade and retrograde flow. There is great back bleed from the right profunda as well. The artery was then repaired using a pericardial patch that was cut to appropriate length and secured using 5-0 Prolene suture in a running fashion. At the end of the procedure were noted no pulse in the right lower extremity. The previously made below the knee incision was made. This was taken down through the subcu tissues electrocautery. The femoral to popliteal artery bypass graft was dissected and the popliteal artery was also dissected and encircled Silastic loop. An arteriotomy was created in the bypass graft and extended in the popliteal artery. There was intimal hyperplasia was noted at the distal anastomosis. That was repaired using a patch angioplasty. a pericardial patch that cut to appropriate length and secured using Prolene suture in the running fashion. And then the procedure were noted weak signal in the posterior tibial artery followed by loss of the signal. Transverse arteriotomy was created into the femoral to popliteal artery bypass graft and tibial thrombectomy was performed. We obtained a great retrograde flow. The arteriotomy was closed using multiple interrupted 5-0 Prolene suture. We noted that a great multiphasic dorsalis pedis and a monophasic posterior tibial signal at the end of the procedure. All wounds were closed in multiple layers of Vicryl suture followed by Monocryl suture. Karyn wound VAC was placed in the right groin and a sterile dressing was applied to the right calf incision. Patient tolerated the procedure was taken recovery in some condition.
--- NOTE | 2018-10-06 12:49 | ECG ---
Date Performed: 10/05/2018 Time Performed: 20:05:55 PTAGE: 63 years EKG: Sinus rhythm MARKED LEFT AXIS DEVIATION RIGHT BUNDLE BRANCH BLOCK POSSIBLE SEPTAL MYOCARDIAL INFARCTION , OF INDE TERMINATE AGE ST DEVIATION AND MARKED T-WAVE ABNORMALITY, CONSIDER ANTEROLATERAL ISCHEMIA ST DEVIATIO N AND MODERATE T-WAVE ABNORMALITY, CONSIDER INFERIOR ISCHEMIA ABNORMAL ECG Since the PREVIOUS TRACING , no significant change noted PREVIOUS TRACIN10/02/2018 06.20 DOCTOR: Maci Gupta Interpretating Date/Time 10/06/2018 12:46:39
[2018-10-06] MEDS ORDERED: fentaNYL Citrate Inj 100 MCG/2 ML Ampul ONE (13:13)
[2018-10-06] MEDS ORDERED: Thrombin Topical 20,000 UNIT Spray Kit TOPICAL ONE (15:16)
[2018-10-06] MEDS: Mirtazapine 15 MG Tablet PO SCH (16:03)
[2018-10-06] MEDS: Isosorbide Mononitrate 30 MG ER 24HR Tablet (Imdur) PO SCH (16:04)
[2018-10-06] MEDS: Senna/Docusate Sodium 8.6/50 MG Tablet PO SCH ×2 (16:05→20:58)
[2018-10-06] MEDS: Calcium Carbonate 500 MG Tablet PO SCH ×2 (16:05→20:58)
--- NOTE | 2018-10-06 17:30 | P.PNIM ---
Subjective Interval history: Pain is controlled. Physical Exam Vital signs: Last Vital Signs Temp 97.6 F 10/06/18 15:00 Pulse 89 10/06/18 17:00 Resp 16 10/06/18 15:00 BP 149/67 H 10/06/18 15:00 Pulse Ox 100 10/06/18 15:49 Narrative: GENERAL: This is a well-nourished, well-developed patient, in no apparent distress. CARDIOVASCULAR: Regular rate and rhythm without murmurs, gallops, or rubs. RESPIRATORY: Clear to auscultation. Breath sounds equal bilaterally. No wheezes , rales, or rhonchi. GASTROINTESTINAL: Abdomen soft, non-tender, nondistended. Normal active bowel sounds NEURO: Alert & Oriented x4 to person, place, time, situation. Moves all ext x4 Results Labs CBC & Chem 7: 10/07/18 03:27 10/07/18 03:27 Assessment and Plan Assessment (1) Peripheral arterial disease: Code(s): I73.9 - Peripheral vascular disease, unspecified Status: Acute Plan - Pt underwent revascularization of RLE with Dr. Chan (10/06) Right lower extremity acute limb ischemia stage II a #1 thrombectomy of the right limb of aortobifem bypass graft #2 thrombectomy of the right femoral to popliteal artery bypass graft #3 right tibial thrombectomy #4 right common femoral artery patch angioplasty #5 right popliteal artery patch angioplasty - pulses improved - IV heparin - prn narcotic norco/dilaudid - narcotics prn - DVT prophylaxis - supporitive. care Progress Note: Quality VTE Deep Vein Thrombosis/Pulmonary Embolism Present on Admission: Yes
[2018-10-06] MEDS: Heparin Drip 25,000 UNIT/250 ML BAG IV.CONT PRN (19:01)
[2018-10-07 03:50] LABS: Hemoglobin 7.6 gm/dL (11.6-15.3); Mean Corpuscular HGB Conc 34.4 % (32.0-36.0); Mean Corpuscular Hemoglobin 31.6 pg (27.0-34.0); Mean Corpuscular Volume 91.8 fL (80.0-100.0); Mean Platelet Volume 8.7 fL (7.0-11.0); Platelet Count 119 th/mm3 (150-450); Red Cell Distribution Width 13.2 % (11.6-17.2); White Blood Count 5.5 th/mm3 (4.0-11.0)
[2018-10-07 04:13] LABS: Anion Gap 5 meq/L (5-15); Blood Urea Nitrogen 9 mg/dL (7-18); Calcium 8.1 mg/dL (8.5-10.1); Carbon Dioxide 32.5 meq/L (21.0-32.0); Chloride 105 meq/L (98-107); Glomerular Filtration Rate Greater Than 89 mL/min (>89); Glucose,Random 95 mg/dL (74-106); Potassium 4.2 meq/L (3.5-5.1); Sodium 142 meq/L (136-145)
[2018-10-07] MEDS ORDERED: Sodium Chlor 0.9% Inj 500 ML IV.CONT ONE (06:00)
--- NOTE | 2018-10-07 08:25 | ECHRPT ---
Indication: Cardiomyopathy CONCLUSIONS Normal left ventricular size. Wall thickness is normal. The left ventricular systolic function is normal with an estimated ejection fraction in the range of 55-60%. Trace mitral valve regurgitation. BP: / HR: Rhythm: MEASUREMENTS (Male / Female) Normal Values Technical Quality:Fair 2D ECHO LV Diastolic Diameter PLAX 4.8 cm 4.2 - 5.9 / 3.9 - 5.3 cm LV Systolic Diameter PLAX 3.3 cm IVS Diastolic Thickness 0.8 cm 0.6 - 1.0 / 0.6 - 0.9 cm LVPW Diastolic Thickness 0.9 cm 0.6 - 1.0 / 0.6 - 0.9 cm LV Relative Wall Thickness 0.3 RV Internal Dim ED PLAX 2.1 cm LVOT Diameter 1.8 cm Aortic Root Diameter 2.6 cm LA Systolic Diameter LX 3.2 cm 3.0 - 4.0 / 2.7 - 3.8 cm DOPPLER AV Peak Velocity 174.0 cm/s AV Peak Gradient 12.1 mmHg LVOT Peak Velocity 136.0 cm/s LVOT Peak Gradient 7.4 mmHg AV Area Cont Eq pk 2.0 cm Mitral E Point Velocity 66.6 cm/s Mitral A Point Velocity 108.0 cm/s Mitral E to A Ratio 0.6 LV E' Lateral Velocity 7.2 cm/s Mitral E to LV E' Lateral Ratio 9.2 LV E' Septal Velocity 6.5 cm/s Mitral E to LV E' Septal Ratio 10.2 TR Peak Velocity 262.0 cm/s TR Peak Gradient 27.5 mmHg Right Atrial Pressure 10.0 mmHg Pulmonary Artery Systolic Pressu 37.5 mmHg Right Ventricular Systolic Press 37.5 mmHg PV Peak Velocity 152.0 cm/s PV Peak Gradient 9.2 mmHg FINDINGS LEFT VENTRICLE Normal left ventricular size. Wall thickness is normal. The left ventricular systolic function is normal with an estimated ejection fraction in the range of 55-60%. RIGHT VENTRICLE Normal right ventricular size and systolic function. LEFT ATRIUM The left atrial size is normal. RIGHT ATRIUM The right atrial size is normal. ATRIAL SEPTUM Normal atrial septal thickness without atrial level shunting by limited color doppler interrogation. AORTA The aortic root and proximal ascending aorta are normal in size on limited imaging. MITRAL VALVE Trace mitral valve regurgitation. TRICUSPID VALVE There is trace tricuspid valve regurgitation. The estimated pulmonary arterial pressure is 38 mmHg. PULMONARY VALVE No pulmonary valve regurgitation or stenosis. VESSELS The inferior vena cava is normal in size. PERICARDIUM No pericardial effusion. Marcos Santos MD, FACC (Electronically Signed) Final Date:07 October 2018 08:24
[2018-10-07] MEDS: Mirtazapine 15 MG Tablet PO SCH (09:20)
[2018-10-07] MEDS: Senna/Docusate Sodium 8.6/50 MG Tablet PO SCH ×2 (09:20→20:50)
[2018-10-07] MEDS: Calcium Carbonate 500 MG Tablet PO SCH ×2 (09:21→20:50)
[2018-10-07] MEDS: Isosorbide Mononitrate 30 MG ER 24HR Tablet (Imdur) PO SCH (09:29)
--- NOTE | 2018-10-07 10:02 | P.PNVS ---
Subjective Post Op Day #: 1 Procedure: thrombectomy of R ABFBG, R fem-pop bypass graft Subjective/Hospital Course: BP labile overnight, transfused 2 prbcs. BP improving this am RLE calf pain resolved, Objective Vital Signs / I&O: Vital Signs 10/06/18 13:05 10/06/18 13:15 10/06/18 13:30 Temperature 97.6 F Pulse Rate 89 86 85 Respiratory Rate 12 16 14 Blood Pressure 177/80 H 146/55 H 161/71 H Pulse Oximetry 100 100 100 10/06/18 13:45 10/06/18 14:00 10/06/18 14:15 Temperature 97.5 F L Pulse Rate 85 83 85 Respiratory Rate 18 15 15 Blood Pressure 140/59 L 137/65 138/67 Pulse Oximetry 100 100 100 10/06/18 15:00 10/06/18 15:49 10/06/18 16:00 Temperature 97.6 F Pulse Rate 82 78 Respiratory Rate 16 Blood Pressure 149/67 H Pulse Oximetry 100 100 10/06/18 17:00 10/06/18 18:00 10/06/18 19:00 Temperature 98.4 F Pulse Rate 89 96 H 95 H Respiratory Rate 16 Blood Pressure 89/53 L Pulse Oximetry 100 10/06/18 20:00 10/06/18 21:00 10/06/18 21:27 Temperature Pulse Rate 92 H 100 H Respiratory Rate Blood Pressure Pulse Oximetry 95 96 10/06/18 22:00 10/06/18 23:00 10/07/18 00:00 Temperature 97.6 F Pulse Rate 92 H 90 86 Respiratory Rate 16 Blood Pressure 88/51 L Pulse Oximetry 95 10/07/18 01:00 10/07/18 02:00 10/07/18 03:00 Temperature 99.5 F Pulse Rate 88 92 H 90 Respiratory Rate 16 Blood Pressure 79/46 L Pulse Oximetry 96 10/07/18 04:00 10/07/18 05:00 10/07/18 06:00 Temperature Pulse Rate 90 88 84 Respiratory Rate Blood Pressure Pulse Oximetry 10/07/18 06:25 10/07/18 06:45 10/07/18 07:00 Temperature 98.8 F 98.8 F 98.1 F Pulse Rate 86 83 83 Respiratory Rate 16 16 16 Blood Pressure 81/48 L 86/51 L 91/53 L Pulse Oximetry 100 98 99 10/07/18 08:49 Temperature Pulse Rate Respiratory Rate Blood Pressure Pulse Oximetry 97 Intake & Output 10/06/18 10/07/18 10/07/18 18:59 06:59 18:59 Intake Total 4189 / 4189 0 / 0 Output Total 1000 / 1000 1700 / 1700 Balance 3189 / 3189 -1700 / -1700 Weight 56.5 kg Intake: IV 739 / 739 Heparin/NS PF Inj 500 ML @ 0 500 / 500 mls/hr .ROUTE .STK-MED ONE Rx#: [id number] Heparin/D5W 25,000 U/250 mL 25, 139 / 139 000 unit In 250 ml @ Per Protocol IV.CONT TITRATE PRN Rx #:[id number] Ancef 1 GM Premix Inj 1 gm In 50 / 50 50 ml @ 0 mls/hr IV.SIG .STK- MED ONE Rx#:[id number] Ancef 2 GM Premix Inj 2 gm In 50 / 50 50 ml @ 0 mls/hr IV.SIG .STK- MED ONE Rx#:[id number] Oral 250 / 250 Anesthesia Amount 3200 / 3200 Intake (Blood Product) Amt 0 / 0 Rbc As-3 Leukoreduced Unit 0 / 0 [id number] Output: Estimated Blood Loss 300 / 300 Urine Amount (Catheter) 700 / 700 1700 / 1700 Indwelling Urethral Catheter 700 / 700 1700 / 1700 Other: Date of Last Bowel Movement 10/05/18 Exam: No pain on R foot active or passive motion. able to dorsiflex and plantarflex the right foot No numbness RLE compartments soft +2 palpable right DP pulse Wounds CDI Laboratory Results - last 24 hr 10/07/18 10/07/18 10/07/18 00:52 03:27 03:27 WBC 5.5 RBC 2.40 L Hgb 7.6 L D Hct 22.0 L MCV 91.8 MCH 31.6 MCHC 34.4 RDW 13.2 Plt Count 119 L MPV 8.7 APTT 45.2 H Sodium 142 Potassium 4.2 Chloride 105 Carbon Dioxide 32.5 H Anion Gap 5 BUN 9 Creatinine 0.59 Estimated GFR Greater than 89 Random Glucose 95 Calcium 8.1 L D MTS Gel Crossmatch 10/07/18 10/07/18 04:44 08:45 WBC RBC Hgb Hct MCV MCH MCHC RDW Plt Count MPV APTT 41.3 H Sodium Potassium Chloride Carbon Dioxide Anion Gap BUN Creatinine Estimated GFR Random Glucose Calcium MTS Gel Crossmatch See Detail Assessment and Plan - Plan Right lower extremity acute limb ischemia stage IIa. S/P thrombectomy of right limb of ABFBG and Right FPBG, Patch angioplasty of right PSYCHIATRIC NP and right popliteal artery dc rodriguez PT eval re-check H/H High risk fem-pop bypass, patient will need manager intermediate anticoagulation. currently on dual antiplatelet therapy, will discuss with Dr. Santos if possible to DC ASA due to increased risk of bleeding with triple therapy.
--- NOTE | 2018-10-07 18:25 | P.PNCA ---
Subjective Interval history: Doing well no complaints Medications and Allergies Active Medications: Active Medications Acetaminophen (Tylenol) 650 mg PO Q4H PRN PRN Reason: Temp > 100.4 Hydrocodone Bitart/Acetaminophen ([place] 7.5/325) 1 tab PO Q4H PRN PRN Reason: pain 1-5, Last Admin: 10/06/18 18:03 Dose: 1 tab Al Hydroxide/Mg Hydroxide (Milk Of Magnraegan Liq) 30 ml PO Q12H PRN PRN Reason: Mild Constipation Aspirin (Ecotrin) 81 mg PO DAILY [facility] Last Admin: 10/07/18 09:21 Dose: 81 mg Atorvastatin Calcium (Lipitor) 20 mg PO MoWeFr@0900 [facility] Last Admin: 10/07/18 09:20 Dose: 20 mg Calcium Carbonate (Oscal) 500 mg PO BID [facility] Last Admin: 10/07/18 09:21 Dose: 500 mg Cilostazol (Pletal) 100 mg PO BID [facility] Last Admin: 10/05/18 21:06 Dose: 100 mg Clopidogrel Bisulfate (Plavix) 75 mg PO DAILY [facility] Last Admin: 10/07/18 09:21 Dose: 75 mg Ergocalciferol (Vitamin D2) 50,000 unit PO Q7D [facility] Hydromorphone HCl (Dilaudid Pf Inj) 0.5 mg IV.PUSH Q4H PRN PRN Reason: PAIN 6-10 Last Admin: 10/06/18 05:06 Dose: 0.5 mg Heparin Sodium/Dextrose (Heparin/D5w 25,000 U/250 Ml) 25,000 unit in 250 mls @ 8 mls/hr IV.CONT TITRATE PRN; Protocol PRN Reason: Per Protocol Last Admin: 10/06/18 19:01 Dose: 800 units/hr, 8 mls/hr Isosorbide Mononitrate (Imdur) 60 mg PO DAILY [facility] Last Admin: 10/07/18 09:29 Dose: Not Given Mirtazapine (Remeron) 7.5 mg PO DAILY [facility] Last Admin: 10/07/18 09:20 Dose: 7.5 mg Nitroglycerin (Nitrostat Sl) 0.4 mg SL Q5M PRN PRN Reason: Acute CHES Pain Ondansetron HCl (Zofran Inj) 4 mg IV.PUSH Q6H PRN PRN Reason: NAUSEA OR VOMITING Pt:Vascepa 1 Gm 0 each PO BID [facility] Senna/Docusate Sodium (Dori-Colace) 1 tab PO BID [facility] Last Admin: 10/07/18 09:20 Dose: 1 tab Sodium Chloride (Ns Flush) 2 ml IV.FLUSH UNSCH PRN PRN Reason: FLUSH AFTER USING IV ACCESS Allergies Allergy/AdvReac Type Severity Reaction Status Date / Time No Known Allergies Allergy Verified 10/05/18 13:18 Home Medications Medication Instructions Recorded Confirmed Type aspirin 81 mg PO DAILY 10/02/18 10/05/18 History calcium carbonate [Calcium 600] 600 mg PO BID 10/02/18 10/05/18 History calcium polycarbophil [Fiber-Tabs] See Label Instructions .ROUTE 10/02/18 History .COMPLEX cilostazol 100 mg PO BID 10/02/18 10/05/18 History ergocalciferol (vitamin D2) 50,000 unit PO QWEEK 10/02/18 10/05/18 History icosapent ethyl [Vascepa] 1 g PO BID 10/02/18 10/05/18 History mirtazapine 7.5 mg PO DAILY 10/02/18 10/05/18 History nitroglycerin 0.3 mg SUBLINGUAL Q5-15M PRN 10/02/18 10/05/18 History rosuvastatin 10 mg PO 3XW 10/02/18 10/05/18 History Physical Exam Vital signs: Vital Signs 10/06/18 19:00 10/06/18 20:00 10/06/18 21:00 Temperature 98.4 F Pulse Rate 95 H 92 H 100 H Respiratory Rate 16 Blood Pressure 89/53 L Pulse Oximetry 100 95 10/06/18 21:27 10/06/18 22:00 10/06/18 23:00 Temperature 97.6 F Pulse Rate 92 H 90 Respiratory Rate 16 Blood Pressure 88/51 L Pulse Oximetry 96 95 10/07/18 00:00 10/07/18 01:00 10/07/18 02:00 Temperature Pulse Rate 86 88 92 H Respiratory Rate Blood Pressure Pulse Oximetry 10/07/18 03:00 10/07/18 04:00 10/07/18 05:00 Temperature 99.5 F Pulse Rate 90 90 88 Respiratory Rate 16 Blood Pressure 79/46 L Pulse Oximetry 96 10/07/18 06:00 10/07/18 06:25 10/07/18 06:45 Temperature 98.8 F 98.8 F Pulse Rate 84 86 83 Respiratory Rate 16 16 Blood Pressure 81/48 L 86/51 L Pulse Oximetry 100 98 10/07/18 07:00 10/07/18 08:00 10/07/18 08:49 Temperature 98.1 F Pulse Rate 80 88 Respiratory Rate 16 Blood Pressure 91/53 L Pulse Oximetry 99 98 97 10/07/18 09:00 10/07/18 10:00 10/07/18 10:31 Temperature 99.1 F Pulse Rate 88 88 87 Respiratory Rate 16 Blood Pressure 97/51 L Pulse Oximetry 98 10/07/18 10:45 10/07/18 10:46 10/07/18 11:00 Temperature 99.4 F 98.9 F 99.1 F Pulse Rate 93 H 86 95 H Respiratory Rate 16 16 16 Blood Pressure 98/56 L 100/52 L 97/57 L Pulse Oximetry 99 98 98 10/07/18 12:00 10/07/18 13:00 10/07/18 14:00 Temperature Pulse Rate 90 92 H 90 Respiratory Rate Blood Pressure Pulse Oximetry 10/07/18 15:00 10/07/18 16:00 10/07/18 17:25 Temperature 97.8 F Pulse Rate 81 86 85 Respiratory Rate 16 Blood Pressure 142/63 H Pulse Oximetry 97 10/07/18 18:00 Temperature Pulse Rate 82 Respiratory Rate Blood Pressure Pulse Oximetry Intake & Output 10/06/18 10/07/18 10/07/18 18:59 06:59 18:59 Intake Total 4189 / 4189 0 / 0 2019 Output Total 1000 / 1000 1700 / 1700 1450 / 1450 Balance 3189 / 3189 -1700 / -1700 570 / 570 Weight 56.5 kg Intake: IV 739 / 739 500 / 500 Heparin/NS PF Inj 500 ML @ 0 500 / 500 mls/hr .ROUTE .STK-MED ONE Rx#: [id number] Heparin/D5W 25,000 U/250 mL 25, 139 / 139 000 unit In 250 ml @ Per Protocol IV.CONT TITRATE PRN Rx #:[id number] NS Inj 500 ML @ As Directed IV. 500 / 500 CONT .Q0M ONE Rx#:[id number] Ancef 1 GM Premix Inj 1 gm In 50 / 50 50 ml @ 0 mls/hr IV.SIG .STK- MED ONE Rx#:[id number] Ancef 2 GM Premix Inj 2 gm In 50 / 50 50 ml @ 0 mls/hr IV.SIG .STK- MED ONE Rx#:[id number] Oral 250 / 250 720 / 720 Anesthesia Amount 3200 / 3200 Intake (Blood Product) Amt 0 / 0 800 / 800 Rbc As-3 Leukoreduced Unit 400 / 400 [id number] Rbc As-3 Leukoreduced Unit 0 / 0 400 / 400 [id number] Output: Estimated Blood Loss 300 / 300 Urine Amount (Catheter) 700 / 700 1700 / 1700 1450 / 1450 Indwelling Urethral Catheter 700 / 700 1700 / 1700 1450 / 1450 Other: # Voids 3 Date of Last Bowel Movement 10/05/18 - Constitutional no acute distress - Routine HEENT Exam Eye: Present: EOMI, PERRL ENT: Present: mucous membranes moist - Routine Neck Exam Absent: JVD - Routine Respiratory Exam Present: CTA bilaterally - Routine Cardiovascular Exam Present: RRR. Absent: murmur - Routine Abdominal Exam Present: normoactive bowel sounds - Routine Neurological Exam Absent: sensory deficit, motor deficit - Urinary Catheter Management Indwelling Urethral Catheter Cath placed during this visit: yes, but has since been removed by the nurse Reason for continuing: Decision to DC catheter Insertion date: 10/06/18 Insertion time: 08:06 Removal date: 10/07/18 Removal time: 13:15 Results 10/07/18 03:27 10/07/18 03:27 Coagulation 10/05/18 10/06/18 10/07/18 Range/Units 21:34 02:45 00:52 PT 10.3 (9.8-11.6) sec APTT 53.5 H D 46.7 H 45.2 H (23.4-31.7) sec 10/07/18 Range/Units 08:45 PT (9.8-11.6) sec APTT 41.3 H (23.4-31.7) sec CBC 10/06/18 10/07/18 Range/Units 02:45 03:27 WBC 7.2 5.5 (4.0-11.0) th/mm3 RBC 3.55 L 2.40 L (4.00-5.30) mil/mm3 Hgb 11.2 L 7.6 L D (11.6-15.3) gm/dL Hct 32.3 L 22.0 L (35.0-46.0) % Plt Count 155 119 L (150-450) th/mm3 Neut # (Auto) 4.3 (1.8-7.7) th/mm3 Lymph # (Auto) 2.1 (1.0-4.8) th/mm3 Stevens # (Auto) 0.7 (0.0-0.9) th/mm3 Eos # (Auto) 0.1 (0.0-0.4) th/mm3 Baso # (Auto) 0.1 (0.0-0.2) th/mm3 Comprehensive Metabolic Panel 10/06/18 10/07/18 Range/Units 02:45 03:27 Sodium 140 142 (136-145) meq/L Potassium 4.0 4.2 (3.5-5.1) meq/L Chloride 104 105 (98-107) meq/L Carbon Dioxide 27.8 32.5 H (21.0-32.0) meq/L BUN 11 9 (7-18) mg/dL Creatinine 0.60 0.59 (0.50-1.00) mg/dL Calcium 9.2 8.1 L D (8.5-10.1) mg/dL Intake and Output 10/07/18 10/07/18 10/07/18 06:59 14:59 22:59 Intake Total 0 / 0 1300 / 1300 720 / 720 Output Total 1700 / 1700 1450 / 1450 Balance -1700 / -1700 1300 / 1300 -730 / -730 Intake: IV 500 / 500 NS Inj 500 ML @ As Directed IV. 500 / 500 CONT .Q0M ONE Rx#:[id number] Oral 720 / 720 Intake (Blood Product) Amt 0 / 0 800 / 800 Rbc As-3 Leukoreduced Unit 400 / 400 [id number] Rbc As-3 Leukoreduced Unit 0 / 0 400 / 400 [id number] Output: Urine Amount (Catheter) 1700 / 1700 1450 / 1450 Indwelling Urethral Catheter 1700 / 1700 1450 / 1450 Other: # Voids 3 Date of Last Bowel Movement 10/05/18 Weight 56.5 kg - Imaging and Cardiology Imaging: Impressions Chest X-Ray 10/05/18 00:00 CONCLUSION: 1. Chronic mild interstitial prominence and minimal bibasilar atelectasis/ scarring. Assessment and Plan - Assessment (1) Peripheral arterial disease Code(s): I73.9 - Peripheral vascular disease, unspecified Status: Acute (2) Vascular occlusion Code(s): I99.8 - Other disorder of circulatory system Status: Acute - Plan Peripheral arterial disease Appreciate vascular surgery assistance in revascularization of the right lower extremity. We will follow along in the postoperative course. Please let me know if there is any cardiovascular questions.
--- NOTE | 2018-10-07 18:30 | P.PNIM ---
Subjective Interval history: No new complaints. Pt's pain is controlled. Pt is tolerating PO intake without n/v/d Physical Exam Vital signs: Last Vital Signs Temp 97.8 F 10/07/18 15:00 Pulse 82 10/07/18 18:00 Resp 16 10/07/18 15:00 BP 142/63 H 10/07/18 15:00 Pulse Ox 97 10/07/18 15:00 Narrative: GENERAL: This is a well-nourished, well-developed patient, in no apparent distress. CARDIOVASCULAR: Regular rate and rhythm without murmurs, gallops, or rubs. RESPIRATORY: Clear to auscultation. Breath sounds equal bilaterally. No wheezes , rales, or rhonchi. GASTROINTESTINAL: Abdomen soft, non-tender, nondistended. Normal active bowel sounds MUSCULOSKELETAL: +2 palpable right DP pulse NEURO: Alert & Oriented x4 to person, place, time, situation. Moves all ext x4 Results Labs CBC & Chem 7: 10/07/18 03:27 10/07/18 03:27 Assessment and Plan Plan - Pt underwent revascularization of RLE with Dr. Chan (10/06) Right lower extremity acute limb ischemia stage II a #1 thrombectomy of the right limb of aortobifem bypass graft #2 thrombectomy of the right femoral to popliteal artery bypass graft #3 right tibial thrombectomy #4 right common femoral artery patch angioplasty #5 right popliteal artery patch angioplasty - pulses improved - prn narcotic norco/dilaudid - Case d/w Dr. Santos (10/07/18) - Case d/w Vascular Surgeon, Dr. Chan, (10/07/18) - stop ASA - continue heparin - start plavix and coumadin (10/08) - imdur, pletal, lipitor - DVT prophylaxis - supporitive. care Progress Note: Quality VTE Deep Vein Thrombosis/Pulmonary Embolism Present on Admission: Yes
[2018-10-07] MEDS: Heparin Drip 25,000 UNIT/250 ML BAG IV.CONT PRN (19:18)
[2018-10-08 04:34] LABS: Baso % (Auto) 0.7 % (0.0-2.0); Eos # (Auto) 0.1 th/mm3 (0.0-0.4); Eos % (Auto) 1.3 % (0.0-4.0); Hematocrit 29.7 % (35.0-46.0); Hemoglobin 10.1 gm/dL (11.6-15.3); Lymph # (Auto) 1.8 th/mm3 (1.0-4.8); Lymph % (Auto) 33.1 % (9.0-44.0); Mean Corpuscular HGB Conc 33.8 % (32.0-36.0); Mean Corpuscular Hemoglobin 29.7 pg (27.0-34.0); Mean Corpuscular Volume 87.9 fL (80.0-100.0); Mean Platelet Volume 8.9 fL (7.0-11.0); Mono # (Auto) 0.7 th/mm3 (0.0-0.9); Neut # (Auto) 2.9 th/mm3 (1.8-7.7); Neut % (Auto) 52.9 % (16.0-70.0); Platelet Count 110 th/mm3 (150-450); Red Blood Count 3.39 mil/mm3 (4.00-5.30); Red Cell Distribution Width 17.2 % (11.6-17.2); White Blood Count 5.4 th/mm3 (4.0-11.0)
[2018-10-08 04:55] LABS: Anion Gap 6 meq/L (5-15); Blood Urea Nitrogen 8 mg/dL (7-18); Calcium 8.1 mg/dL (8.5-10.1); Chloride 109 meq/L (98-107); Glomerular Filtration Rate Greater Than 89 mL/min (>89); Glucose,Random 95 mg/dL (74-106); Magnesium 2.1 mg/dL (1.5-2.5); Potassium 3.7 meq/L (3.5-5.1); Sodium 144 meq/L (136-145)
--- NOTE | 2018-10-08 07:53 | P.PNIM ---
Subjective Interval history: asking for solid food no n/v ambulated with walker to bathroom rle might be a little more swollen Physical Exam Vital signs: Last Vital Signs Temp 99.4 F 10/08/18 03:00 Pulse 80 10/08/18 07:00 Resp 16 10/08/18 03:00 BP 148/70 H 10/08/18 03:00 Pulse Ox 97 10/08/18 03:00 Narrative: heart reg lung cta abd s/nt ext rle swelling. palpable pulses bandaged over incisions. Results Labs CBC & Chem 7: 10/08/18 04:04 10/08/18 04:04 Assessment and Plan Assessment (1) Peripheral arterial disease: Code(s): I73.9 - Peripheral vascular disease, unspecified Status: Acute Plan - Pt underwent revascularization of RLE with Dr. Chan (10/06) Right lower extremity acute limb ischemia stage II a #1 thrombectomy of the right limb of aortobifem bypass graft #2 thrombectomy of the right femoral to popliteal artery bypass graft #3 right tibial thrombectomy #4 right common femoral artery patch angioplasty #5 right popliteal artery patch angioplasty - pulses improved - prn narcotic norco/dilaudid - Case d/w Dr. Santos (10/07/18) - Case d/w Vascular Surgeon, Dr. Chan, (10/07/18) - stop ASA - continue heparin - started plavix and coumadin (10/08) - imdur, pletal, lipitor - DVT prophylaxis - supporitive. care resume heart healthy diet daily PT Progress Note: Quality VTE Deep Vein Thrombosis/Pulmonary Embolism Present on Admission: Yes
[2018-10-08] MEDS: Mirtazapine 15 MG Tablet PO SCH (09:35)
[2018-10-08] MEDS: Calcium Carbonate 500 MG Tablet PO SCH ×2 (09:36→22:29)
[2018-10-08] MEDS: Senna/Docusate Sodium 8.6/50 MG Tablet PO SCH ×2 (09:36→22:29)
[2018-10-08] MEDS: Isosorbide Mononitrate 30 MG ER 24HR Tablet (Imdur) PO SCH (09:36)
--- NOTE | 2018-10-08 11:06 | P.PNVS ---
Subjective Post Op Day #: 2 Procedure: thrombectomy of R ABFBG, R fem-pop bypass graft Subjective/Hospital Course: doing well, pain controlled CO RLE swelling Objective Vital Signs / I&O: Vital Signs 10/07/18 12:00 10/07/18 13:00 10/07/18 14:00 Temperature Pulse Rate 90 92 H 90 Respiratory Rate Blood Pressure Pulse Oximetry 10/07/18 15:00 10/07/18 16:00 10/07/18 17:25 Temperature 97.8 F Pulse Rate 81 86 85 Respiratory Rate 16 Blood Pressure 142/63 H Pulse Oximetry 97 10/07/18 18:00 10/07/18 19:00 10/07/18 20:00 Temperature 98.0 F Pulse Rate 82 78 78 Respiratory Rate 16 Blood Pressure 141/63 H Pulse Oximetry 100 10/07/18 21:00 10/07/18 22:00 10/07/18 23:00 Temperature 98.9 F Pulse Rate 82 88 80 Respiratory Rate 14 Blood Pressure 105/55 L Pulse Oximetry 96 10/08/18 00:00 10/08/18 01:00 10/08/18 02:00 Temperature Pulse Rate 78 72 74 Respiratory Rate Blood Pressure Pulse Oximetry 10/08/18 03:00 10/08/18 04:00 10/08/18 05:00 Temperature 99.4 F Pulse Rate 79 82 84 Respiratory Rate 16 Blood Pressure 148/70 H Pulse Oximetry 97 10/08/18 06:00 10/08/18 07:00 10/08/18 08:00 Temperature 98.0 F Pulse Rate 74 87 69 Respiratory Rate 17 Blood Pressure 143/65 H Pulse Oximetry 98 10/08/18 09:00 10/08/18 10:00 Temperature Pulse Rate 70 82 Respiratory Rate Blood Pressure Pulse Oximetry Intake & Output 10/07/18 10/08/18 10/08/18 18:59 06:59 18:59 Intake Total 2019 490 / 490 Output Total 1450 / 1450 1000 / 1000 Balance 570 / 570 -510 / -510 Weight 54 kg Intake: IV 500 / 500 250 / 250 Heparin/D5W 25,000 U/250 mL 25, 250 / 250 000 unit In 250 ml @ 800 UNITS/ HR 8 mls/hr IV.CONT TITRATE PRN Rx#:[id number] NS Inj 500 ML @ As Directed IV. 500 / 500 CONT .Q0M ONE Rx#:[id number] Oral 720 / 720 240 / 240 Intake (Blood Product) Amt 800 / 800 Rbc As-3 Leukoreduced Unit 400 / 400 [id number] Rbc As-3 Leukoreduced Unit 400 / 400 [id number] Output: Urine 1000 / 1000 Urine Amount (Catheter) 1450 / 1450 Indwelling Urethral Catheter 1450 / 1450 Other: # Voids 3 Exam: RLE compartments soft + 2 edema wounds CDI Palpable R DP pulse Laboratory Results - last 24 hr 10/07/18 10/08/18 10/08/18 04:44 04:04 04:04 WBC 5.4 RBC 3.39 L Hgb 10.1 L D Hct 29.7 L MCV 87.9 D MCH 29.7 MCHC 33.8 RDW 17.2 D Plt Count 110 L MPV 8.9 Neut % (Auto) 52.9 Lymph % (Auto) 33.1 [place] % (Auto) 12.0 H Eos % (Auto) 1.3 Baso % (Auto) 0.7 Neut # (Auto) 2.9 Lymph # (Auto) 1.8 [place] # (Auto) 0.7 Eos # (Auto) 0.1 Baso # (Auto) 0.0 WBC Differential . Differential Comment Auto diff final APTT Sodium 144 Potassium 3.7 Chloride 109 H Carbon Dioxide 29.0 Anion Gap 6 BUN 8 Creatinine 0.51 Estimated GFR Greater than 89 Random Glucose 95 Calcium 8.1 L Magnesium 2.1 MTS Gel Crossmatch See Detail 10/08/18 04:04 WBC RBC Hgb Hct MCV MCH MCHC RDW Plt Count MPV Neut % (Auto) Lymph % (Auto) [place] % (Auto) Eos % (Auto) Baso % (Auto) Neut # (Auto) Lymph # (Auto) [place] # (Auto) Eos # (Auto) Baso # (Auto) WBC Differential Differential Comment APTT 51.0 H D Sodium Potassium Chloride Carbon Dioxide Anion Gap BUN Creatinine Estimated GFR Random Glucose Calcium Magnesium MTS Gel Crossmatch Assessment and Plan - Plan Right lower extremity acute limb ischemia stage IIa. 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
[2018-10-09] MEDS: Heparin Drip 25,000 UNIT/250 ML BAG IV.CONT PRN (02:44)
[2018-10-09 04:42] LABS: INR 1.1 Ratio; Prothrombin Time 10.7 sec (9.8-11.6)
[2018-10-09] MEDS: Isosorbide Mononitrate 30 MG ER 24HR Tablet (Imdur) PO SCH (08:35)
[2018-10-09] MEDS: Senna/Docusate Sodium 8.6/50 MG Tablet PO SCH ×2 (08:36→20:41)
[2018-10-09] MEDS: Calcium Carbonate 500 MG Tablet PO SCH ×2 (08:36→20:42)
--- NOTE | 2018-10-09 09:48 | P.PNIM ---
Subjective Interval history: wants to ambulate more. Physical Exam Vital signs: Last Vital Signs Temp 98.2 F 10/09/18 04:00 Pulse 67 10/09/18 07:00 Resp 20 10/09/18 04:00 BP 144/64 H 10/09/18 04:00 Pulse Ox 98 10/09/18 04:00 Narrative: heart reg lung cta abd s/nt ext rle swelling improved with] mona hose.. palpable pulses bandaged over incisions. Results Labs CBC & Chem 7: 10/08/18 04:04 10/08/18 04:04 Assessment and Plan Assessment (1) Peripheral arterial disease: Code(s): I73.9 - Peripheral vascular disease, unspecified Status: Acute Plan - Pt underwent revascularization of RLE with Dr. Chan (10/06) Right lower extremity acute limb ischemia stage II a #1 thrombectomy of the right limb of aortobifem bypass graft #2 thrombectomy of the right femoral to popliteal artery bypass graft #3 right tibial thrombectomy #4 right common femoral artery patch angioplasty #5 right popliteal artery patch angioplasty - pulses improved - prn narcotic norco/dilaudid - Case d/w Dr. Santos (10/07/18) - Case d/w Vascular Surgeon, Dr. Chan, (10/07/18) - stop ASA - continue heparin - started plavix and coumadin (10/08) - imdur, pletal, lipitor - DVT prophylaxis - supporitive. care resume heart healthy diet daily PT Pt could go home with lovenox/coumadin bridge and [facility] to follow if ok with Vascular. discussed with Dr Santos his office will follow the coumadin after dc. Progress Note: Quality VTE Deep Vein Thrombosis/Pulmonary Embolism Present on Admission: Yes
--- NOTE | 2018-10-09 09:56 | P.PNCA ---
Subjective Interval history: Doing well no complaints. Physical therapy at the bedside. Patient ambulating without issues. Medications and Allergies Active Medications: Active Medications Acetaminophen (Tylenol) 650 mg PO Q4H PRN PRN Reason: Temp > 100.4 Hydrocodone Bitart/Acetaminophen ([place] 7.5/325) 1 tab PO Q4H PRN PRN Reason: pain 1-5, Last Admin: 10/09/18 07:48 Dose: 1 tab Al Hydroxide/Mg Hydroxide (Milk Of Pamella Trejo) 30 ml PO Q12H PRN PRN Reason: Mild Constipation Atorvastatin Calcium (Lipitor) 20 mg PO MoWeFr@0900 [facility] Last Admin: 10/09/18 08:36 Dose: 20 mg Calcium Carbonate (Oscal) 500 mg PO BID [facility] Last Admin: 10/09/18 08:36 Dose: 500 mg Cilostazol (Pletal) 100 mg PO BID [facility] Last Admin: 10/05/18 21:06 Dose: 100 mg Clopidogrel Bisulfate (Plavix) 75 mg PO DAILY [facility] Last Admin: 10/09/18 08:35 Dose: 75 mg Ergocalciferol (Vitamin D2) 50,000 unit PO Q7D [facility] Hydromorphone HCl (Dilaudid Pf Inj) 0.5 mg IV.PUSH Q4H PRN PRN Reason: PAIN 6-10 Last Admin: 10/06/18 05:06 Dose: 0.5 mg Heparin Sodium/Dextrose (Heparin/D5w 25,000 U/250 Ml) 25,000 unit in 250 mls @ 8 mls/hr IV.CONT TITRATE PRN; Protocol PRN Reason: Per Protocol Last Admin: 10/09/18 02:44 Dose: 800 units/hr, 8 mls/hr Isosorbide Mononitrate (Imdur) 60 mg PO DAILY [facility] Last Admin: 10/09/18 08:35 Dose: 30 mg Mirtazapine (Remeron) 7.5 mg PO HS [facility] Miscellaneous (Pill Splitter) 1 each OTHER UNSCH PRN PRN Reason: PILL SPLITTING Nitroglycerin (Nitrostat Sl) 0.4 mg SL Q5M PRN PRN Reason: Acute CHES Pain Ondansetron HCl (Zofran Inj) 4 mg IV.PUSH Q6H PRN PRN Reason: NAUSEA OR VOMITING Pt:Vascepa 1 Gm 0 each PO BID [facility] Senna/Docusate Sodium (Dori-Colace) 1 tab PO BID [facility] Last Admin: 10/09/18 08:36 Dose: 1 tab Sodium Chloride (Ns Flush) 2 ml IV.FLUSH UNSCH PRN PRN Reason: FLUSH AFTER USING IV ACCESS Warfarin Sodium (Coumadin) 5 mg PO DAILY@1600 [facility] Last Admin: 10/08/18 17:33 Dose: 5 mg Allergies Allergy/AdvReac Type Severity Reaction Status Date / Time No Known Allergies Allergy Verified 10/05/18 13:18 Home Medications Medication Instructions Recorded Confirmed Type aspirin 81 mg PO DAILY 10/02/18 10/05/18 History calcium carbonate [Calcium 600] 600 mg PO BID 10/02/18 10/05/18 History calcium polycarbophil [Fiber-Tabs] See Label Instructions .ROUTE 10/02/18 History .COMPLEX cilostazol 100 mg PO BID 10/02/18 10/05/18 History ergocalciferol (vitamin D2) 50,000 unit PO QWEEK 10/02/18 10/05/18 History icosapent ethyl [Vascepa] 1 g PO BID 10/02/18 10/05/18 History mirtazapine 7.5 mg PO DAILY 10/02/18 10/05/18 History nitroglycerin 0.3 mg SUBLINGUAL Q5-15M PRN 10/02/18 10/05/18 History rosuvastatin 10 mg PO 3XW 10/02/18 10/05/18 History Physical Exam Vital signs: Vital Signs 10/08/18 10:00 10/08/18 11:00 10/08/18 12:00 Temperature 98.7 F Pulse Rate 82 79 79 Respiratory Rate 17 Blood Pressure 111/53 L Pulse Oximetry 99 10/08/18 13:00 10/08/18 14:00 10/08/18 14:58 Temperature 98.1 F Pulse Rate 79 80 78 Respiratory Rate 17 Blood Pressure 101/55 L Pulse Oximetry 100 10/08/18 15:00 10/08/18 16:00 10/08/18 16:08 Temperature Pulse Rate 78 79 Respiratory Rate 16 Blood Pressure Pulse Oximetry 10/08/18 17:00 10/08/18 17:37 10/08/18 19:00 Temperature Pulse Rate 77 81 75 Respiratory Rate Blood Pressure Pulse Oximetry 10/08/18 20:00 10/08/18 20:30 10/08/18 21:00 Temperature 98 F Pulse Rate 75 75 78 Respiratory Rate 18 Blood Pressure 137/60 Pulse Oximetry 98 10/08/18 22:00 10/08/18 23:00 10/09/18 00:00 Temperature 98 F Pulse Rate 75 73 76 Respiratory Rate 19 Blood Pressure 150/73 H Pulse Oximetry 97 10/09/18 01:00 10/09/18 02:00 10/09/18 03:00 Temperature Pulse Rate 75 75 78 Respiratory Rate 18 Blood Pressure Pulse Oximetry 10/09/18 04:00 10/09/18 07:00 Temperature 98.2 F Pulse Rate 80 67 Respiratory Rate 20 Blood Pressure 144/64 H Pulse Oximetry 98 Intake & Output 10/08/18 10/09/18 10/09/18 18:59 06:59 18:59 Intake Total 250 / 250 Balance 250 / 250 Weight 54.5 kg Intake: IV 250 / 250 Heparin/D5W 25,000 U/250 mL 25, 250 / 250 000 unit In 250 ml @ 800 UNITS/ HR 8 mls/hr IV.CONT TITRATE PRN Rx#:[id number] - Constitutional no acute distress - Routine HEENT Exam Eye: Present: PERRL ENT: Present: mucous membranes moist - Routine Neck Exam Absent: JVD - Routine Respiratory Exam Present: CTA bilaterally - Routine Cardiovascular Exam Present: RRR. Absent: murmur - Routine Abdominal Exam Present: normoactive bowel sounds - Routine Extremities Exam Present: edema - Routine Neurological Exam Absent: sensory deficit, motor deficit - Urinary Catheter Management Indwelling Urethral Catheter Cath placed during this visit: yes, but has since been removed by the nurse Reason for continuing: Decision to DC catheter Insertion date: 10/06/18 Insertion time: 08:06 Removal date: 10/07/18 Removal time: 13:15 Results 10/08/18 04:04 10/08/18 04:04 Coagulation 10/08/18 10/09/18 10/09/18 Range/Units 04:04 04:23 04:23 PT 10.7 (9.8-11.6) sec APTT 51.0 H D 46.7 H (23.4-31.7) sec CBC 10/08/18 Range/Units 04:04 WBC 5.4 (4.0-11.0) th/mm3 RBC 3.39 L (4.00-5.30) mil/mm3 Hgb 10.1 L D (11.6-15.3) gm/dL Hct 29.7 L (35.0-46.0) % Plt Count 110 L (150-450) th/mm3 Neut # (Auto) 2.9 (1.8-7.7) th/mm3 Lymph # (Auto) 1.8 (1.0-4.8) th/mm3 [place] # (Auto) 0.7 (0.0-0.9) th/mm3 Eos # (Auto) 0.1 (0.0-0.4) th/mm3 Baso # (Auto) 0.0 (0.0-0.2) th/mm3 Comprehensive Metabolic Panel 10/08/18 Range/Units 04:04 Sodium 144 (136-145) meq/L Potassium 3.7 (3.5-5.1) meq/L Chloride 109 H (98-107) meq/L Carbon Dioxide 29.0 (21.0-32.0) meq/L BUN 8 (7-18) mg/dL Creatinine 0.51 (0.50-1.00) mg/dL Calcium 8.1 L (8.5-10.1) mg/dL Intake and Output 10/08/18 10/09/18 10/09/18 22:59 06:59 14:59 Intake Total 250 / 250 Balance 250 / 250 Intake: IV 250 / 250 Heparin/D5W 25,000 U/250 mL 25, 250 / 250 000 unit In 250 ml @ 800 UNITS/ HR 8 mls/hr IV.CONT TITRATE PRN Rx#:[id number] Other: Weight 54.5 kg Assessment and Plan - Assessment (1) Peripheral arterial disease Code(s): I73.9 - Peripheral vascular disease, unspecified Status: Acute (2) Vascular occlusion Code(s): I99.8 - Other disorder of circulatory system Status: Acute - Plan Peripheral arterial disease Appreciate vascular surgery assistance in revascularization of the right lower extremity. Discharge planning Consider Lovenox to Coumadin bridge. Follow-up in outpatient setting. I will sign off. Thank you.
[2018-10-09] MEDS: Mirtazapine 15 MG Tablet PO SCH ×2 (18:15→20:41)
--- NOTE | 2018-10-09 23:56 | P.PNVS ---
Subjective Subjective/Hospital Course: doing well, pain controlled CO RLE swelling Objective Vital Signs / I&O: Vital Signs 10/09/18 00:00 10/09/18 01:00 10/09/18 02:00 Temperature Pulse Rate 76 75 75 Respiratory Rate Blood Pressure Pulse Oximetry 10/09/18 03:00 10/09/18 04:00 10/09/18 07:00 Temperature 98.2 F 98.2 F Pulse Rate 78 80 71 Respiratory Rate 18 20 20 Blood Pressure 144/64 H 160/68 H Pulse Oximetry 98 97 10/09/18 08:00 10/09/18 09:00 10/09/18 10:00 Temperature Pulse Rate 68 72 70 Respiratory Rate Blood Pressure Pulse Oximetry 10/09/18 11:00 10/09/18 12:00 10/09/18 13:00 Temperature 98.4 F Pulse Rate 81 78 74 Respiratory Rate 20 Blood Pressure 154/64 H Pulse Oximetry 97 10/09/18 14:00 10/09/18 15:00 10/09/18 16:00 Temperature 98.6 F Pulse Rate 74 87 78 Respiratory Rate 20 Blood Pressure 144/72 H Pulse Oximetry 98 10/09/18 17:00 10/09/18 18:00 10/09/18 19:00 Temperature Pulse Rate 80 76 69 Respiratory Rate Blood Pressure Pulse Oximetry 10/09/18 19:47 10/09/18 20:00 10/09/18 21:00 Temperature 97.7 F Pulse Rate 78 76 72 Respiratory Rate 18 Blood Pressure 126/60 Pulse Oximetry 99 10/09/18 22:00 10/09/18 23:00 Temperature Pulse Rate 82 75 Respiratory Rate Blood Pressure Pulse Oximetry Intake & Output 10/09/18 10/09/18 10/10/18 06:59 18:59 06:59 Intake Total 250 / 250 1250 / 1250 Output Total 1210 / 1210 Balance 250 / 250 40 / 40 Weight 54.5 kg Intake: IV 250 / 250 Heparin/D5W 25,000 U/250 mL 25, 250 / 250 000 unit In 250 ml @ 800 UNITS/ HR 8 mls/hr IV.CONT TITRATE PRN Rx#:[id number] Oral 1250 / 1250 Output: Urine 1210 / 1210 Other: # Bowel Movements 0 Physical Exam: RLE + 2 edema, compartments are soft. no pain on active or passive motion Multiphasic pedal signals wounds CDI Laboratory Results - last 24 hr 10/09/18 10/09/18 04:23 04:23 PT 10.7 INR 1.1 APTT 46.7 H Assessment and Plan - Plan Right lower extremity acute limb ischemia stage IIa. 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
[2018-10-10 06:42] LABS: Activated Partial Thrombo Time 52.7 sec (23.4-31.7); INR 1.6 Ratio; Prothrombin Time 16.2 sec (9.8-11.6)
[2018-10-10] MEDS: Heparin Drip 25,000 UNIT/250 ML BAG IV.CONT PRN (08:23)
[2018-10-10] MEDS: Senna/Docusate Sodium 8.6/50 MG Tablet PO SCH ×2 (09:45→20:21)
[2018-10-10] MEDS: Isosorbide Mononitrate 30 MG ER 24HR Tablet (Imdur) PO SCH (09:45)
[2018-10-10] MEDS: Calcium Carbonate 500 MG Tablet PO SCH ×2 (09:45→20:22)
--- NOTE | 2018-10-10 11:32 | P.PNIM ---
Subjective Interval history: pt still with some rle swelling Physical Exam Vital signs: Last Vital Signs Temp 99.1 F 10/10/18 07:00 Pulse 75 10/10/18 07:00 Resp 16 10/10/18 07:00 BP 124/56 L 10/10/18 07:00 Pulse Ox 98 10/10/18 07:00 Narrative: heart reg lung cta abd s/nt ext rle swelling improved with] mona hose.. palpable pulses bandaged over incisions. Results Labs CBC & Chem 7: 10/08/18 04:04 10/08/18 04:04 Assessment and Plan Assessment (1) Peripheral arterial disease: Code(s): I73.9 - Peripheral vascular disease, unspecified Status: Acute Plan - Pt underwent revascularization of RLE with Dr. Chan (10/06) Right lower extremity acute limb ischemia stage II a #1 thrombectomy of the right limb of aortobifem bypass graft #2 thrombectomy of the right femoral to popliteal artery bypass graft #3 right tibial thrombectomy #4 right common femoral artery patch angioplasty #5 right popliteal artery patch angioplasty - pulses improved - prn narcotic norco/dilaudid - Case d/w Dr. Santos (10/07/18) - Case d/w Vascular Surgeon, Dr. Chan, (10/07/18) - stop ASA - continue heparin - started plavix and coumadin (10/08) - imdur, pletal, lipitor - DVT prophylaxis - supporitive. care resume heart healthy diet daily PT cont heparin/coumadin. discussed lovenox with pt. inr is rising and she wasn't feeling ready to go home today. inr might reach 2 prior to dc Progress Note: Quality VTE Deep Vein Thrombosis/Pulmonary Embolism Present on Admission: Yes
--- NOTE | 2018-10-10 12:16 | P.PNVS ---
Subjective Post Op Day #: 4 Procedure: thrombectomy of R ABFBG, R fem-pop bypass graft Subjective/Hospital Course: R LE swelling persists but better according to the patient walked some yesterday but unsteady getting anticoagulated Objective Vital Signs / I&O: Vital Signs 10/09/18 13:00 10/09/18 14:00 10/09/18 15:00 Temperature 98.6 F Pulse Rate 74 74 87 Respiratory Rate 20 Blood Pressure 144/72 H Pulse Oximetry 98 10/09/18 16:00 10/09/18 17:00 10/09/18 18:00 Temperature Pulse Rate 78 80 76 Respiratory Rate Blood Pressure Pulse Oximetry 10/09/18 19:00 10/09/18 19:47 10/09/18 20:00 Temperature 97.7 F Pulse Rate 69 78 76 Respiratory Rate 18 Blood Pressure 126/60 Pulse Oximetry 99 10/09/18 21:00 10/09/18 22:00 10/09/18 23:00 Temperature Pulse Rate 72 82 75 Respiratory Rate Blood Pressure Pulse Oximetry 10/10/18 00:00 10/10/18 00:23 10/10/18 01:00 Temperature 98 F Pulse Rate 77 76 76 Respiratory Rate 18 Blood Pressure 134/60 Pulse Oximetry 98 10/10/18 02:00 10/10/18 03:00 10/10/18 03:25 Temperature 98 F Pulse Rate 74 73 82 Respiratory Rate 18 Blood Pressure 124/60 Pulse Oximetry 99 10/10/18 04:00 10/10/18 05:00 10/10/18 06:00 Temperature Pulse Rate 74 83 80 Respiratory Rate Blood Pressure Pulse Oximetry 10/10/18 07:00 Temperature 99.1 F Pulse Rate 75 Respiratory Rate 16 Blood Pressure 124/56 L Pulse Oximetry 98 Intake & Output 10/09/18 10/10/18 10/10/18 18:59 06:59 18:59 Intake Total 1250 / 1250 240 / 240 250 / 250 Output Total 1210 / 1210 1250 / 1250 Balance 40 / 40 -1010 / -1010 250 / 250 Weight 54.5 kg Intake: IV 250 / 250 Heparin/D5W 25,000 U/250 mL 25, 250 / 250 000 unit In 250 ml @ 800 UNITS/ HR 8 mls/hr IV.CONT TITRATE PRN Rx#:[id number] Oral 1250 / 1250 240 / 240 Output: Urine 1210 / 1210 1250 / 1250 Other: # Bowel Movements 0 Exam: sitting in chair R LE leg swollen R prevena in place strong doppler signal in foot Laboratory Results - last 24 hr 10/10/18 06:22 PT 16.2 H INR 1.6 APTT 52.7 H Assessment and Plan - Assessment (1) Peripheral arterial disease Code(s): I73.9 - Peripheral vascular disease, unspecified Status: Acute - Plan POD#4 R LE thrombectomy and graft revision 1. continue to transition from hep gtt to oral anticoagulation 2. PT/OOB 3. Pulse checks
[2018-10-10] MEDS: Mirtazapine 15 MG Tablet PO SCH (20:22)
[2018-10-10] MEDS: HYDROmorphone PF Inj 1 MG/ML Ampul IV.PUSH PRN (20:22)
[2018-10-11 04:26] LABS: Activated Partial Thrombo Time 58.5 sec (23.4-31.7); INR 1.9 Ratio; Prothrombin Time 19.1 sec (9.8-11.6)
[2018-10-11] MEDS: Senna/Docusate Sodium 8.6/50 MG Tablet PO SCH ×2 (09:20→20:51)
[2018-10-11] MEDS: Calcium Carbonate 500 MG Tablet PO SCH ×2 (09:20→20:51)
[2018-10-11] MEDS: Isosorbide Mononitrate 30 MG ER 24HR Tablet (Imdur) PO SCH (09:21)
--- NOTE | 2018-10-11 09:27 | P.PNIM ---
Subjective Interval history: ambulating hallway. Physical Exam Vital signs: Last Vital Signs Temp 98.5 F 10/11/18 07:00 Pulse 74 10/11/18 07:00 Resp 16 10/11/18 07:00 BP 119/56 L 10/11/18 07:00 Pulse Ox 98 10/11/18 07:00 Narrative: heart reg lung cta abd s/nt ext rle swelling improved with] mona hose.. palpable pulses bandaged over incisions. Results Labs CBC & Chem 7: 10/08/18 04:04 10/08/18 04:04 Assessment and Plan Assessment (1) Peripheral arterial disease: Code(s): I73.9 - Peripheral vascular disease, unspecified Status: Acute Plan - Pt underwent revascularization of RLE with Dr. Chan (10/06) Right lower extremity acute limb ischemia stage II a #1 thrombectomy of the right limb of aortobifem bypass graft #2 thrombectomy of the right femoral to popliteal artery bypass graft #3 right tibial thrombectomy #4 right common femoral artery patch angioplasty #5 right popliteal artery patch angioplasty - pulses improved - prn narcotic norco/dilaudid - Case d/w Dr. Santos (10/07/18) - Case d/w Vascular Surgeon, Dr. Chan, (10/07/18) - stop ASA - continue heparin - started plavix and coumadin (10/08) - imdur, pletal, lipitor - DVT prophylaxis - supporitive. care resume heart healthy diet daily PT cont heparin/coumadin. discussed lovenox with pt. inr is rising and she wasn't feeling ready to go home today. inr might reach 2 prior to dc will have [facility] follow the inr and report to Dr Santos office for adjustment anticipate dc tomorrow. Progress Note: Quality VTE Deep Vein Thrombosis/Pulmonary Embolism Present on Admission: Yes
--- NOTE | 2018-10-11 09:59 | P.PNVS ---
Subjective Post Op Day #: 5 Procedure: thrombectomy of R ABFBG, R fem-pop bypass graft Subjective/Hospital Course: more steady on feet; overall feels well INR 1.9 today Objective Vital Signs / I&O: Vital Signs 10/10/18 10:00 10/10/18 11:00 10/10/18 12:00 Temperature 98.9 F Pulse Rate 82 86 82 Respiratory Rate 16 Blood Pressure 95/56 L Pulse Oximetry 98 10/10/18 13:00 10/10/18 14:00 10/10/18 15:00 Temperature 98.3 F Pulse Rate 82 82 88 Respiratory Rate 16 Blood Pressure 95/52 L Pulse Oximetry 97 10/10/18 16:00 10/10/18 17:00 10/10/18 18:00 Temperature Pulse Rate 88 77 76 Respiratory Rate Blood Pressure Pulse Oximetry 10/10/18 19:00 10/10/18 20:00 10/10/18 21:00 Temperature 98.6 F Pulse Rate 95 H 74 74 Respiratory Rate 16 Blood Pressure 125/57 L Pulse Oximetry 100 10/10/18 22:00 10/10/18 23:00 10/11/18 00:00 Temperature 99 F Pulse Rate 74 75 68 Respiratory Rate 16 Blood Pressure 129/63 Pulse Oximetry 97 10/11/18 01:00 10/11/18 02:00 10/11/18 03:00 Temperature 98.7 F Pulse Rate 72 72 70 Respiratory Rate 16 Blood Pressure 122/57 L Pulse Oximetry 68 L 10/11/18 04:00 10/11/18 05:00 10/11/18 06:00 Temperature Pulse Rate 69 70 68 Respiratory Rate Blood Pressure Pulse Oximetry 10/11/18 07:00 Temperature 98.5 F Pulse Rate 74 Respiratory Rate 16 Blood Pressure 119/56 L Pulse Oximetry 98 Intake & Output 10/10/18 10/11/18 10/11/18 18:59 06:59 18:59 Intake Total 970 / 970 Output Total 1000 / 1000 550 / 550 Balance -30 / -30 -550 / -550 Weight 53.5 kg Intake: IV 250 / 250 Heparin/D5W 25,000 U/250 mL 25, 250 / 250 000 unit In 250 ml @ 800 UNITS/ HR 8 mls/hr IV.CONT TITRATE PRN Rx#:[id number] Oral 720 / 720 Output: Urine 1000 / 1000 550 / 550 Other: # Voids 1 Date of Last Bowel Movement 10/10/18 10/10/18 10/10/18 # Bowel Movements 2 Exam: sitting in chair R LE edema improving; BK pop incision ok palpable DP Laboratory Results - last 24 hr 10/11/18 03:45 PT 19.1 H INR 1.9 APTT 58.5 H Assessment and Plan - Assessment (1) Peripheral arterial disease Code(s): I73.9 - Peripheral vascular disease, unspecified Status: Acute - Plan POD#5 R LE thrombectomy and graft revision 1. continue to transition from hep gtt to oral anticoagulation; likely therapeutic tomorrow 2. PT/OOB 3. Pulse checks 4. Will remove Prevena prior to d/c tomorrow (POD#6) Discharge Planning: likely tomorrow if INR>2
[2018-10-11] MEDS: Heparin Drip 25,000 UNIT/250 ML BAG IV.CONT PRN (11:26)
--- NOTE | 2018-10-11 15:57 | P.DCO ---
Diagnosis (1) Peripheral arterial disease: Status: Acute Physical Therapy Order: Evaluate and treat and Improve ambulation Home Health Nursing Order: Medical education, Signs/symptoms of disease process, Medication education-adverse effect and Nursing assessment with vital signs Instructions: check INR levels 10/13, 10/16, 10/19 and notify [facility] cardiology office Dr James Santos with results and any coumadin adjustments Case Management Consult Case Management Consult-Home Health: Yes I have seen patient Alisa Stauffer on 10/11/18. My clinical findings support the need for the requested home health care services because: I certify that my clinical findings support that this patient is homebound because:
[2018-10-11] MEDS: Mirtazapine 15 MG Tablet PO SCH (20:53)
[2018-10-12 05:58] LABS: Prothrombin Time 20.7 sec (9.8-11.6)
[2018-10-12] MEDS: Isosorbide Mononitrate 30 MG ER 24HR Tablet (Imdur) PO SCH (08:49)
[2018-10-12] MEDS: Senna/Docusate Sodium 8.6/50 MG Tablet PO SCH (08:50)
[2018-10-12] MEDS: Calcium Carbonate 500 MG Tablet PO SCH (08:50)
[2018-10-12 09:28] VITALS: BP 144/60; RESP 17; TEMP 98.6; O2SAT 98
--- NOTE | 2018-10-12 11:19 | P.PNVS ---
Subjective Procedure: thrombectomy of R ABFBG, R fem-pop bypass graft Subjective/Hospital Course: Doing well, right lower extremity swelling is improved Objective Vital Signs / I&O: Vital Signs 10/11/18 12:00 10/11/18 13:00 10/11/18 14:00 Temperature Pulse Rate 78 76 82 Respiratory Rate Blood Pressure Pulse Oximetry 10/11/18 15:00 10/11/18 16:00 10/11/18 17:00 Temperature 98.4 F Pulse Rate 71 74 90 Respiratory Rate 16 Blood Pressure 125/57 L Pulse Oximetry 100 10/11/18 18:00 10/11/18 19:00 10/11/18 20:00 Temperature 98.5 F Pulse Rate 80 81 70 Respiratory Rate 16 Blood Pressure 126/59 L Pulse Oximetry 10/11/18 21:00 10/11/18 22:00 10/11/18 23:00 Temperature 98.7 F Pulse Rate 72 80 84 Respiratory Rate 12 Blood Pressure 130/60 Pulse Oximetry 10/12/18 00:00 10/12/18 01:00 10/12/18 02:00 Temperature Pulse Rate 84 80 80 Respiratory Rate Blood Pressure Pulse Oximetry 10/12/18 03:00 10/12/18 04:00 10/12/18 05:00 Temperature 98.5 F Pulse Rate 83 86 76 Respiratory Rate 12 Blood Pressure 127/58 L Pulse Oximetry 10/12/18 06:00 10/12/18 07:00 10/12/18 08:00 Temperature 98.6 F Pulse Rate 76 76 79 Respiratory Rate 17 Blood Pressure 144/60 H Pulse Oximetry 98 10/12/18 09:00 10/12/18 10:00 10/12/18 10:47 Temperature Pulse Rate 76 77 Respiratory Rate 17 Blood Pressure Pulse Oximetry Intake & Output 10/11/18 10/12/18 10/12/18 18:59 06:59 18:59 Intake Total 850 / 850 480 / 480 Output Total 1100 / 1100 2400 / 2400 Balance -250 / -250 -1920 / -1920 Weight 47.5 kg Intake: IV 250 / 250 Heparin/D5W 25,000 U/250 mL 25, 250 / 250 000 unit In 250 ml @ 800 UNITS/ HR 8 mls/hr IV.CONT TITRATE PRN Rx#:[id number] Oral 600 / 600 480 / 480 Output: Urine 1100 / 1100 2400 / 2400 Other: Date of Last Bowel Movement 10/10/18 10/11/18 Exam: Right lower extremity +1 edema, possible dorsalis pedis pulse Laboratory Results - last 24 hr 10/12/18 10/12/18 05:00 05:00 PT 20.7 H INR 2.0 APTT 46.7 H D Assessment and Plan - Assessment (1) Peripheral arterial disease Code(s): I73.9 - Peripheral vascular disease, unspecified Status: Acute - Plan POD#6 R LE thrombectomy and graft revision Continue with anticoagulation. Stable for discharge from vascular surgery standpoint. We will schedule follow-up in 2 weeks with DANETTE and arterial duplex. Discharge Planning: likely tomorrow if INR>2
[2018-10-12 11:33] VITALS: PULSE 68
--- NOTE | 2018-10-12 18:06 | P.DS ---
DS: Providers Date of admission: 10/05/18 17:34 Primary care physician: Nila Kemp MD Consults: 10/05/18 17:04 Consult to Vascular Surgery Routine Consulting Provider: Abdullahi Mendez Relief Cook:: Abdullahi Mendez Reason for Consultation: RLE limb ischemia Notified:: Physician Spoke with:: Date Notified:: 10/05/18 Time Notified:: 17:17 Ordering Provider: ANTONIO 10/12/18 11:00 HUB Only Consult Order Routine Consulting Provider: [facility] DS: Diagnosis Discharge Diagnosis (1) Peripheral arterial disease: Status: Acute DS: Summary -Patient presented with right leg ischemia with pain. - Pt underwent revascularization of RLE with Dr. Chan (10/06) Right lower extremity acute limb ischemia stage II a #1 thrombectomy of the right limb of aortobifem bypass graft #2 thrombectomy of the right femoral to popliteal artery bypass graft #3 right tibial thrombectomy #4 right common femoral artery patch angioplasty #5 right popliteal artery patch angioplasty - pulses improved Pt had some post procedure edema of right leg improved with debbie wrap she was on heparin gtt until coumadin level was 2. She will have [facility] to check 3x inr over next week with result to Dr Santos for adjusting. Also continue her plavix. Mehdi staples written for her. Time Spent with Patient Total time spent providing and/or coordinating discharge services: Greater than 30 minutes Quality: VTE Deep Vein Thrombosis/Pulmonary Embolism Present on Admission: Yes Results Labs on day of discharge: Labs from last 24 hours 10/12/18 10/12/18 05:00 05:00 PT 20.7 H INR 2.0 APTT 46.7 H D Impressions ITS Impressions Chest X-Ray 10/05/18 00:00 CONCLUSION: 1. Chronic mild interstitial prominence and minimal bibasilar atelectasis/ scarring. Aorta w/Runoff CTA 10/05/18 13:37 CONCLUSION: 1. Occlusion of the right limb of the aortobifem and femoral TP graft with very poor runoff below the knee. 2. Patent aortobifem on the left with good a runoff into the left lower extremity. 3. Findings were called to emergency room Dr. Kim on today's date Discharge Plan Discharge Disposition Patient Disposition: W/Home Health Service Discharge Condition Condition: Stable Discharge Order Discharge Orders: Discharge Order (Routine); Ordered 10/12/18 Ordered By: Leonel Vázquez Discharge Details Anticipated Discharge Date: 10/12/18 Physicians Team Primary Care Provider: Nila Kemp Attending Provider: Phillip Waters Other Providers: Abdullahi Mendez ; [facility] Rxs /Orders / Referrals /Forms Prescriptions: New warfarin [Coumadin] 5 mg Tablet 5 mg PO DAILY@1600 Qty: 30 RF: 3 hydrocodone-acetaminophen [[place]] 7.5-325 mg tablet 1 tab PO Q4H PRN (Reason: pain) Qty: 18 RF: 0 Continue cilostazol 100 mg Tablet 100 mg PO BID RF: 0 nitroglycerin 0.3 mg Tablet, Sublingual 0.3 mg SUBLINGUAL Q5-15M PRN (Reason: Acute Pain) RF: 0 calcium carbonate [Calcium 600] 600 mg calcium (1,500 mg) Tablet 600 mg PO BID RF: 0 calcium polycarbophil [Fiber-Tabs] 625 mg Tablet See Label Instructions .ROUTE .COMPLEX RF: 0 ergocalciferol (vitamin D2) 50,000 unit Capsule 50,000 unit PO QWEEK RF: 0 rosuvastatin 10 mg Tablet 10 mg PO 3XW RF: 0 mirtazapine 7.5 mg Tablet 7.5 mg PO DAILY RF: 0 icosapent ethyl [Vascepa] 1 gram Capsule 1 g PO BID RF: 0 isosorbide mononitrate 30 mg Tablet Extended Release 24 Hr 60 mg PO DAILY Qty: 30 RF: 11 clopidogrel 75 mg Tablet 75 mg PO DAILY Qty: 30 RF: 11 Discontinued aspirin 81 mg Tablet,Delayed Release (Dr/Ec) 81 mg PO DAILY RF: 0 Referrals: Nila Kemp MD [Primary Care Provider] - See Instructions (f/u for recheck 2 weeks.) Jesus Chan MD [Physician] - See Instructions (Your appointment is scheduled on 10/28/18 at 10:00 for a surveillance DANETTE/Graft scan/Post op f/u ) Marcos Santos MD [Physician] - See Instructions (f/u 1 week. follow your coumadin and inr levels) Status ED Status: Left Department Discharge Information Discharge Date/Time: 10/12/18 12:23
== END 2018-10-12 12:23 | disposition home health service (06) ==
LOC: NEPE 09:48 → NEDA 17:34 → N07 18:24 → HCIS 10-06 09:15 → HCPC 10-06 13:39
PROVIDERS: ADMIT Hospitalist; ATTEND Hospitalist